=== PATIENT | female | born 1965 | race Caucasian/White ===

== ENCOUNTER 2016-05-01 18:27 | Inpatient (IN) | payer OTHER ==
[~2016-05-01] VITALS: Ht 157.5 cm; Wt 102.7 kg
[~2016-05-01 18:27] MED LIST: ALDACTONE 25MG25 M1 PO; ALEVE 220MG220 MG PO; ALPHA LIPOIC300 MG; AMBIEN 10MG10 MG PO; AMOXICILLIN 50500 MG PO; AMOXICILLIN 8751 TAB PO; ASPIRIN 32325 MG/TAB PO; ASPIRIN 81M81 MG/TA2 PO; ASPIRIN E.C. 8181 MG PO; ATACAND4 MG PO; B COMPLEX1 TA4 PO; BACTRIM DS 8001 TAB PO; CHANTIX 1MG1 MG PO; CINNAMON BARK P1 POW PO; COREG 3.123.125 MG/T PO; COREG 6.256.25 MG/TA PO; CYMBALTA 20MG20 MG PO; DESYREL 50MG50 MG PO; DIAMOX 250MG250 MG; DIFLUCAN150 MG PO; DIGITEK0.125 MG PO; FLEXERIL 1010 MG/TAB PO; FLOVENT 220MCG7.9 GM IH; GAS RELIEF80 MG PO; HUMALOG100 U/ML SQ; ISMO 20MG20 MG PO; KLONOPIN 0.5MG0.5 MG PO; LAMICTAL 25MG T25 MG PO; LANTUS100 U/ML SC; LANTUS100 U/ML SQ; LASIX 20MG TABL20 MG PO; LATUDA20 MG PO; LINZESS145CAP PO; LINZESS290CAP PO; LIPITOR 10MG10 MG PO; LODINE400 MG; LORTAB 5/500 501 TAB PO; METHADONE H10 MG/TAB; MINIPRESS 1M1 MG/CAP PO; MIRALAX PA17 GM/Dose PO; MONODOX100 PO; MS CONTIN 115 MG/TAB PO; MS CONTIN 330 MG/TAB PO; MUCINEX 60600 MG/TA1 PO; MUCUS RELIEF400 M1 PO; MULTIPLE VITAMI1 CAP PO; NEURONTIN100 MG/CAP PO; NEURONTIN300 MG/CAP; NEURONTIN600 MG/TAB PO; NEURONTIN800 MG/TAB PO; NICODERM C21 MG/PATC TOP; NITRO-TIME9 MG PO; NITROSTAT0.3 MG SL; NITROSTAT0.4 MG/TAB SL; NORCO 325 MG-51 TAB PO; NOVOLOG 100U100 U/M1 SC; NOVOLOG 100U100 U/M1 SQ; OXYCONTIN 10MG10 MG PO; PERCOCET 325 MG1 TA2 PO; PERCOCET 325 MG1 TA3 PO; PLAVIX 75MG TAB75 MG PO; POTASSIUM GLUC500 MG PO; PREDNISONE20 MG PO; PROAIR HFA0.09 MG/AC IH; PROTONIX 40MG T40 MG PO; PROTONIX20 MG PO; PROVENTIL0.09 MG/A1 IH; SPRINTEC 35 MCG1 TAB PO; TOPROL XL 25MG25 MG; VASOTEC 2.2.5 MG/TAB PO; VICODIN 5/300; VICODIN 5/300 PO; VITAMIN B COMPL1 TA1 PO; WELLBUTRIN 100100 MG PO; WELLBUTRIN SR150 M1 PO; WELLBUTRIN XL300 M1 PO; XARELTO10 MG; XARELTO20 MG PO; ZESTRIL 10MG10 MG PO; ZESTRIL 5MG5 MG PO; ZYRTEC 10MG10 MG PO; [UNRECOGNIZED DRUG - OTHER] PO
[2016-05-01 19:33] LABS: BASO # 0.1 (0.0-0.2); BASO % 0.5 % (0.0-2.0); EOS # 0.4 (0.0-0.7); EOS % 1.7 % (0-4.0); GRAN # 16.8 (1.4-6.5); GRAN % 78.4 % (42.2-75.2); HEMATOCRIT 39.9 % (37.0-47.0); HEMOGLOBIN 13.3 g/dl (12.5-16.0); LYMPH # 3.2 (1.2-3.4); MEAN CELL VOLUME 83 fl (80.0-100.0); MEAN CORPUSCULAR HEMOGLOBIN 28 pg (27.0-31.0); MEAN CORPUSCULAR HGB CONC 33 g/dl (33.0-37.0); MONO # 0.9 (0.1-0.6); MONO % 4.1 % (1.7-9.3); PLATELET COUNT 279 K/mm3 (130-400); RED BLOOD COUNT 4.82 M/mm3 (4.10-5.30); REDCELL DISTRIBUTION WIDTH-CV 13.6 % (11.5-14.5)
[2016-05-01 19:36] LABS: WHITE BLOOD COUNT 21.4 K/mm3 (4.8-10.8)
[2016-05-01 19:38] LABS: PARTIAL THROMBOPLASTIN TIME 29.6 SECONDS (26.0-37.0)
[2016-05-01 19:41] LABS: ADJUSTED CALCIUM 9.3 mg/dL (8.4-10.2); ALANINE AMINOTRANSFERASE 46 U/L (9-52); ALBUMIN 4.1 gm/dL (3.5-5.0); ALKALINE PHOSPHATASE 156 U/L (50-136); ANION GAP 13 mmol/L (7-16); BILIRUBIN,TOTAL 0.6 mg/dL (0.0-1.0); BLOOD UREA NITROGEN 20 mg/dL (7-17); CALCIUM 9.4 mg/dL (8.4-10.2); CARBON DIOXIDE 22 mmol/L (22-30); CHLORIDE 101 mmol/L (98-107); CREATININE, serum 1.55 mg/dL (0.52-1.25); GLUCOSE 95 mg/dL (74-106); POTASSIUM 4.7 mmol/L (3.4-5.0); SODIUM 135 mmol/L (137-145); TOTAL PROTEIN 7.1 gm/dL (6.4-8.2)
[2016-05-01 19:51] LABS: PROTHROMBIN TIME 11.6 SECONDS (9.7-12.8)
[2016-05-01 19:52] LABS: TROPONIN-I < 0.012 ng/mL (0.000-0.034)
[2016-05-01 21:20] LABS: PH 5 (5-8); URINE APPEARANCE Hazy; URINE BACTERIA Rare /hpf; URINE BILIRUBIN Negative (NEGATIVE); URINE BLOOD Negative (NEGATIVE); URINE COLOR Amber; URINE GLUCOSE Negative (NEGATIVE); URINE KETONE Negative (NEGATIVE); URINE UROBILINOGEN Negative (NEGATIVE); URINE WBC 0-2 /hpf
[2016-05-01 23:46] VITALS: BP 93/53; PULSE 118; TEMP 99.8
== END 2016-05-02 02:05 | disposition short-term general hospital (02) | DRG 871 ==
LOC: COL.ER 18:27 → MEDICAL 20:43 → ICU 20:43
PROVIDERS: Family Medicine
PROC: 02HV33Z Insertion of Infusion Device into Superior Vena Cava, Percutaneous Approach (ICD-10-PCS; principal; 2016-05-02)
DX: A41.9 Sepsis, unspecified organism (principal); J18.9 Pneumonia, unspecified organism; N17.9 Acute kidney failure, unspecified; I50.22 Chronic systolic (congestive) heart failure; E11.9 Type 2 diabetes mellitus without complications; I25.10 Atherosclerotic heart disease of native coronary artery without angina pectoris; Z95.5 Presence of coronary angioplasty implant and graft; Z87.891 Personal history of nicotine dependence; Z79.4 Long term (current) use of insulin; R65.20 Severe sepsis without septic shock
CPT/HCPCS: 99223-AI; C1751; J0456; J0696; J7030; J7060; Q9967

== ENCOUNTER 2016-06-03 14:23 | Observation (INO) | payer OTHER ==
[2016-06-03] VITALS (159 sets, daily range): BP systolic 85–97; BP diastolic 49–62; PULSE 100–106; TEMP 97–97.9; O2SAT 86–100
[~2016-06-03] VITALS: Ht 157.5 cm; Wt 99.3 kg
[2016-06-03 15:07] LABS: BASO # 0.1 (0.0-0.2); BASO % 0.7 % (0.0-2.0); EOS # 0.5 (0.0-0.7); GRAN # 6.1 (1.4-6.5); GRAN % 52.9 % (42.2-75.2); HEMATOCRIT 38.4 % (37.0-47.0); HEMOGLOBIN 12.7 g/dl (12.5-16.0); LYMPH # 4.2 (1.2-3.4); LYMPH % 36.3 % (20.0-51.0); MEAN CELL VOLUME 84 fl (80.0-100.0); MEAN CORPUSCULAR HEMOGLOBIN 28 pg (27.0-31.0); MEAN CORPUSCULAR HGB CONC 33 g/dl (33.0-37.0); MEAN PLATELET VOLUME 10.1 fl (7.4-10.4); MONO # 0.7 (0.1-0.6); MONO % 5.8 % (1.7-9.3); PLATELET COUNT 272 K/mm3 (130-400); RED BLOOD COUNT 4.58 M/mm3 (4.10-5.30); WHITE BLOOD COUNT 11.6 K/mm3 (4.8-10.8)
[2016-06-03 15:12] LABS: ADJUSTED CALCIUM 9.5 mg/dL (8.4-10.2); ALBUMIN 3.7 gm/dL (3.5-5.0); BILIRUBIN,TOTAL 0.6 mg/dL (0.0-1.0); CALCIUM 9.3 mg/dL (8.4-10.2); CREATININE, serum 1.26 mg/dL (0.52-1.25); POTASSIUM 3.7 mmol/L (3.4-5.0); TOTAL PROTEIN 6.5 gm/dL (6.4-8.2)
[2016-06-03 15:23] LABS: TROPONIN-I 0.015 ng/mL (0.000-0.034)
[2016-06-03 15:27] LABS: PROTHROMBIN TIME 10.9 SECONDS (9.7-12.8)
[2016-06-03 15:29] LABS: PARTIAL THROMBOPLASTIN TIME 30.1 SECONDS (26.0-37.0)
[2016-06-03] MEDS ORDERED: LIPITOR 80MG80 MG PO (15:55)
[2016-06-03] MEDS ORDERED: ALPHA LIPOIC A200 M2 PO (15:55)
[2016-06-03] MEDS ORDERED: ASPIRIN 32325 MG/TAB PO (15:55)
[2016-06-03] MEDS ORDERED: WELLBUTRIN SR200 MG PO (15:56)
[2016-06-03] MEDS ORDERED: PLAVIX 75MG TAB75 MG PO (15:56)
[2016-06-03] MEDS ORDERED: COREG 6.256.25 MG/TA PO (15:56)
[2016-06-03] MEDS ORDERED: CHANTIX 1MG1 MG PO (15:56)
[2016-06-03] MEDS ORDERED: VASOTEC 5MG5 MG/TAB PO (15:57)
[2016-06-03] MEDS ORDERED: CYMBALTA 60MG60 MG PO (15:57)
[2016-06-03] MEDS ORDERED: LANOXIN 0.120.125 MG PO (15:57)
[2016-06-03] MEDS ORDERED: NEURONTIN300 MG/CAP PO (15:58)
[2016-06-03] MEDS ORDERED: IMDUR 30MG30 MG/TAB PO (15:58)
[2016-06-03] MEDS ORDERED: LASIX 40MG TABL40 MG PO (15:58)
[2016-06-03] MEDS ORDERED: LAMICTAL200 MG PO (15:59)
[2016-06-03] MEDS ORDERED: LEVEMIR FLEX100 U/ML SQ (16:00)
[2016-06-03] MEDS ORDERED: MS CONTIN 330 MG/TAB PO (16:00)
[2016-06-03] MEDS ORDERED: ROXICODONE 55 MG/TAB PO (16:01)
[2016-06-03] MEDS ORDERED: NOVLOG SQ (16:01)
[2016-06-03] MEDS ORDERED: VICTOZA6 MG/ML SQ (16:02)
[2016-06-04] VITALS (393 sets, daily range): BP systolic 83–131; BP diastolic 54–94; PULSE 97–144; TEMP 97.9–98.5; O2SAT 81–100
[2016-06-04] MEDS ORDERED: ALPHA LIPOIC A200 M2 PO (09:33)
[2016-06-04] MEDS ORDERED: NITROSTAT0.4 MG/TAB SL (15:42)
== END 2016-06-04 16:30 | disposition home or self-care (01) ==
LOC: COL.ER 14:23 → IMCU 17:55
PROVIDERS: Emergency Medicine
DX: I21.4 Non-ST elevation (NSTEMI) myocardial infarction (principal); R07.9 Chest pain, unspecified; I50.22 Chronic systolic (congestive) heart failure; I25.10 Atherosclerotic heart disease of native coronary artery without angina pectoris; Z95.5 Presence of coronary angioplasty implant and graft; I42.9 Cardiomyopathy, unspecified; E11.9 Type 2 diabetes mellitus without complications; Z79.4 Long term (current) use of insulin; M79.7 Fibromyalgia; I48.0 Paroxysmal atrial fibrillation; Z79.01 Long term (current) use of anticoagulants; I44.7 Left bundle-branch block, unspecified
CPT/HCPCS: 99223-AI; 99239; A9502; G0378; J1160; J1250; J1650; J1815; J3010; J7030

== ENCOUNTER 2016-06-12 12:55 | Emergency (ER) | payer OTHER ==
[~2016-06-12] VITALS: Ht 157.5 cm; Wt 97.7 kg
[~2016-06-12 12:55] MED LIST changes: +ALPHA LIPOIC A200 M2 PO; +CYMBALTA 60MG60 MG PO; +IMDUR 30MG30 MG/TAB PO; +LAMICTAL200 MG PO; +LANOXIN 0.120.125 MG PO; +LASIX 40MG TABL40 MG PO; +LEVEMIR FLEX100 U/ML SQ; +LIPITOR 80MG80 MG PO; +NEURONTIN300 MG/CAP PO; +NOVLOG SQ; +ROXICODONE 55 MG/TAB PO; +VASOTEC 5MG5 MG/TAB PO; +VICTOZA6 MG/ML SQ; +WELLBUTRIN SR200 MG PO
[2016-06-12 13:04] VITALS: TEMP 99.5
[2016-06-12 13:24] LABS: BASO # 0.1 (0.0-0.2); BASO % 0.6 % (0.0-2.0); EOS # 0.1 (0.0-0.7); EOS % 1.1 % (0-4.0); GRAN # 8.7 (1.4-6.5); GRAN % 70.6 % (42.2-75.2); HEMATOCRIT 40.2 % (37.0-47.0); HEMOGLOBIN 13.5 g/dl (12.5-16.0); LYMPH % 24.2 % (20.0-51.0); MEAN CELL VOLUME 83 fl (80.0-100.0); MEAN CORPUSCULAR HEMOGLOBIN 28 pg (27.0-31.0); MEAN CORPUSCULAR HGB CONC 34 g/dl (33.0-37.0); MEAN PLATELET VOLUME 10.6 fl (7.4-10.4); MONO # 0.4 (0.1-0.6); MONO % 3.2 % (1.7-9.3); PLATELET COUNT 241 K/mm3 (130-400); RED BLOOD COUNT 4.85 M/mm3 (4.10-5.30); REDCELL DISTRIBUTION WIDTH-CV 13.9 % (11.5-14.5); WHITE BLOOD COUNT 12.3 K/mm3 (4.8-10.8)
[2016-06-12 13:30] LABS: PARTIAL THROMBOPLASTIN TIME 30.6 SECONDS (26.0-37.0)
[2016-06-12 13:44] LABS: ADJUSTED CALCIUM 9.4 mg/dL (8.4-10.2); ALBUMIN 4.1 gm/dL (3.5-5.0); BILIRUBIN,TOTAL 0.7 mg/dL (0.0-1.0); CALCIUM 9.5 mg/dL (8.4-10.2); CREATININE, serum 1.34 mg/dL (0.52-1.25); POTASSIUM 4.1 mmol/L (3.4-5.0); TOTAL PROTEIN 6.8 gm/dL (6.4-8.2)
[2016-06-12 13:55] LABS: TROPONIN-I 0.02 ng/mL (0.000-0.034)
[2016-06-12] MEDS ORDERED: MULTIPLE VITAMI1 CAP PO (15:08)
[2016-06-12 15:27] LABS: PH 5 (5-8); URINE APPEARANCE Clear; URINE BACTERIA Rare /hpf; URINE BILIRUBIN Negative (NEGATIVE); URINE BLOOD Negative (NEGATIVE); URINE COLOR Straw; URINE GLUCOSE 1+ (NEGATIVE); URINE KETONE Negative (NEGATIVE); URINE RBC None Seen /hpf; URINE UROBILINOGEN Negative (NEGATIVE); URINE WBC 0-2 /hpf
[2016-06-12 16:46] VITALS: BP 98/65; PULSE 104
== END 2016-06-12 16:20 | disposition short-term general hospital (02) ==
LOC: COL.ER 12:55
PROVIDERS: Family Medicine
DX: A41.9 Sepsis, unspecified organism (principal); R07.9 Chest pain, unspecified; I44.7 Left bundle-branch block, unspecified; Z95.5 Presence of coronary angioplasty implant and graft; I25.10 Atherosclerotic heart disease of native coronary artery without angina pectoris
CPT/HCPCS: J0692; J1650; J2185; J3370; J7030; J7050

== ENCOUNTER 2016-07-18 22:21 | Inpatient (IN) | payer OTHER ==
[~2016-07-18] VITALS: Ht 157.6 cm; Wt 99.3 kg
[2016-07-18] MEDS ORDERED: ALPHA LIPOIC A200 M2 PO (22:39)
[2016-07-18] MEDS ORDERED: ASPIRIN 81M81 MG/TA2 PO (22:43)
[2016-07-18] MEDS ORDERED: BRILINTA90 MG PO (22:44)
[2016-07-18 22:55] LABS: BASO # 0.1 (0.0-0.2); BASO % 0.6 % (0.0-2.0); EOS # 0.3 (0.0-0.7); EOS % 2.3 % (0-4.0); GRAN # 7.5 (1.4-6.5); GRAN % 65.1 % (42.2-75.2); HEMATOCRIT 38.5 % (37.0-47.0); HEMOGLOBIN 13.2 g/dl (12.5-16.0); LYMPH # 3.4 (1.2-3.4); LYMPH % 28.9 % (20.0-51.0); MEAN CELL VOLUME 84 fl (80.0-100.0); MEAN CORPUSCULAR HEMOGLOBIN 29 pg (27.0-31.0); MEAN CORPUSCULAR HGB CONC 34 g/dl (33.0-37.0); MONO # 0.3 (0.1-0.6); MONO % 2.8 % (1.7-9.3); PLATELET COUNT 288 K/mm3 (130-400); RED BLOOD COUNT 4.61 M/mm3 (4.10-5.30); REDCELL DISTRIBUTION WIDTH-CV 13.8 % (11.5-14.5); WHITE BLOOD COUNT 11.6 K/mm3 (4.8-10.8)
[2016-07-18 23:00] LABS: PROTHROMBIN TIME 10.8 SECONDS (9.7-12.8)
[2016-07-18 23:05] LABS: ADJUSTED CALCIUM 9.2 mg/dL (8.4-10.2); ALANINE AMINOTRANSFERASE 44 U/L (9-52); ALBUMIN 4.3 gm/dL (3.5-5.0); ALKALINE PHOSPHATASE 140 U/L (50-136); ANION GAP 14 mmol/L (7-16); BILIRUBIN,TOTAL 0.6 mg/dL (0.0-1.0); BLOOD UREA NITROGEN 23 mg/dL (7-17); CALCIUM 9.4 mg/dL (8.4-10.2); CARBON DIOXIDE 25 mmol/L (22-30); CHLORIDE 98 mmol/L (98-107); CREATINE KINASE 52 U/L (30-135); CREATININE, serum 1.26 mg/dL (0.52-1.25); GLUCOSE 135 mg/dL (74-106); LIPASE 41 U/L (23-300); POTASSIUM 3.5 mmol/L (3.4-5.0); SODIUM 137 mmol/L (137-145); TOTAL PROTEIN 7.4 gm/dL (6.4-8.2)
[2016-07-18 23:16] LABS: B-TYPE NATRIURETIC PEPTIDE 373 pg/mL (0-125)
[2016-07-18 23:29] LABS: TROPONIN-I < 0.012 ng/mL (0.000-0.034)
[2016-07-19] VITALS (826 sets, daily range): BP systolic 91–123; BP diastolic 68–93; PULSE 97–116; TEMP 97.2–98.5; O2SAT 87–100
[2016-07-19 06:12] LABS: DIGOXIN < 0.4 ng/mL (0.8-2.0)
[2016-07-19 07:01] LABS: PH 6 (5-8); SQUAMOUS EPITHELIAL 0-2 /hpf; URINE APPEARANCE Clear; URINE BACTERIA None Seen /hpf; URINE BILIRUBIN Negative (NEGATIVE); URINE BLOOD 1+ (NEGATIVE); URINE COLOR Straw; URINE GLUCOSE Negative (NEGATIVE); URINE KETONE Negative (NEGATIVE); URINE RBC 0-2 /hpf; URINE UROBILINOGEN Negative (NEGATIVE); URINE WBC 0-2 /hpf
[2016-07-20] VITALS (296 sets, daily range): BP systolic 94–128; BP diastolic 55–77; PULSE 92–117; TEMP 97.3–98.5; O2SAT 91–100
[2016-07-21] VITALS (7 sets, daily range): BP systolic 98–119; BP diastolic 57–79; PULSE 87–105; TEMP 97.8–98.7
[2016-07-22] VITALS (16 sets, daily range): BP systolic 98–98102; BP diastolic 6–93; PULSE 75–112; TEMP 97.8–99.1
[2016-07-22] MEDS ORDERED: KLONOPIN 0.5MG0.5 MG (08:24)
[2016-07-22 09:40] LABS: MEAN CELL VOLUME 86 fl (80.0-100.0); MEAN CORPUSCULAR HEMOGLOBIN 28 pg (27.0-31.0); MEAN CORPUSCULAR HGB CONC 33 g/dl (33.0-37.0); MEAN PLATELET VOLUME 9.9 fl (7.4-10.4); PLATELET COUNT 268 K/mm3 (130-400); RED BLOOD COUNT 4.28 M/mm3 (4.10-5.30); REDCELL DISTRIBUTION WIDTH-CV 13.6 % (11.5-14.5); WHITE BLOOD COUNT 7.2 K/mm3 (4.8-10.8)
[2016-07-22 09:45] LABS: HEMATOCRIT 36.6 % (37.0-47.0)
[2016-07-22 09:50] LABS: CALCIUM 9.1 mg/dL (8.4-10.2); CREATININE, serum 1.17 mg/dL (0.52-1.25); POTASSIUM 3.6 mmol/L (3.4-5.0)
[2016-07-22 09:51] LABS: PROTHROMBIN TIME 10.5 SECONDS (9.7-12.8)
[2016-07-23] VITALS (7 sets, daily range): BP systolic 95–129; BP diastolic 50–85; PULSE 99–107; TEMP 97.4–98.6
[2016-07-23] MEDS ORDERED: COREG 6.256.25 MG/TA PO (11:07)
[2016-07-23] MEDS ORDERED: NITRO-DUR0.4 MG/PAT TD (13:38)
[2016-07-24] MEDS ORDERED: ZOFRAN 4MG T4 MG/TAB PO (17:04)
[2016-07-24] MEDS ORDERED: LEVAQUIN 750MG750 M1 PO (17:04)
[2016-07-24] MEDS ORDERED: TESSALON P100 MG/CAP PO (17:04)
== END 2016-07-23 17:59 | disposition home or self-care (01) | DRG 287 ==
LOC: COL.ER 22:21 → IMCU 07-19 00:57 → MEDICAL 07-20 16:13
PROVIDERS: Emergency Medicine; Internal Medicine; Internal Medicine Cardiovascular Disease
PROC: B2111ZZ Fluoroscopy of Multiple Coronary Arteries using Low Osmolar Contrast (ICD-10-PCS; principal; 2016-07-22)
DX: R07.89 Other chest pain (principal); N17.9 Acute kidney failure, unspecified; E11.9 Type 2 diabetes mellitus without complications; M54.5 Low back pain; I25.5 Ischemic cardiomyopathy; I25.2 Old myocardial infarction; I25.10 Atherosclerotic heart disease of native coronary artery without angina pectoris; F17.210 Nicotine dependence, cigarettes, uncomplicated; Z95.5 Presence of coronary angioplasty implant and graft; Z79.4 Long term (current) use of insulin
CPT/HCPCS: 99223-AI; 99232-AI; 99239; A9502; J1644; J1815; J2250; J2270; J2785; J3010; J7030; J7040; Q9967

== ENCOUNTER 2016-07-24 15:00 | Emergency (ER) | payer OTHER ==
[~2016-07-24] VITALS: Ht 157.5 cm; Wt 100.9 kg
[~2016-07-24 15:00] MED LIST changes: +BRILINTA90 MG PO; +KLONOPIN 0.5MG0.5 MG; +NITRO-DUR0.4 MG/PAT TD
[2016-07-24 15:02] VITALS: TEMP 99.9
[2016-07-24 16:28] LABS: INFLUENZA B NEGATIVE
[2016-07-24] MEDS ORDERED: LEVAQUIN 750MG750 M1 PO (17:04)
[2016-07-24] MEDS ORDERED: TESSALON P100 MG/CAP PO (17:04)
[2016-07-24] MEDS ORDERED: ZOFRAN 4MG T4 MG/TAB PO (17:04)
[2016-07-24 17:15] VITALS: BP 100/61; PULSE 100
== END 2016-07-24 17:16 | disposition home or self-care (01) ==
LOC: COL.ER 15:00
PROVIDERS: Emergency Medicine
DX: J18.9 Pneumonia, unspecified organism (principal); I25.10 Atherosclerotic heart disease of native coronary artery without angina pectoris; E11.9 Type 2 diabetes mellitus without complications; J45.909 Unspecified asthma, uncomplicated; F17.210 Nicotine dependence, cigarettes, uncomplicated

== ENCOUNTER 2016-08-27 19:24 | Emergency (ER) | payer OTHER ==
[~2016-08-27] VITALS: Ht 157.5 cm; Wt 97.7 kg
[~2016-08-27 19:24] MED LIST changes: +LEVAQUIN 750MG750 M1 PO; +TESSALON P100 MG/CAP PO; +ZOFRAN 4MG T4 MG/TAB PO
[2016-08-27 19:25] VITALS: BP 104/56; PULSE 112; TEMP 98.6
[2016-08-27] MEDS ORDERED: CRUTCHES MC (21:19)
== END 2016-08-27 22:09 | disposition home or self-care (01) ==
LOC: COL.ER 19:24
DX: S82.301A Unspecified fracture of lower end of right tibia, initial encounter for closed fracture (principal); S82.831A Other fracture of upper and lower end of right fibula, initial encounter for closed fracture; S00.03XA Contusion of scalp, initial encounter; W01.198A Fall on same level from slipping, tripping and stumbling with subsequent striking against other object, initial encounter; Y92.009 Unspecified place in unspecified non-institutional (private) residence as the place of occurrence of the external cause; E11.9 Type 2 diabetes mellitus without complications; I25.2 Old myocardial infarction; F17.210 Nicotine dependence, cigarettes, uncomplicated; Z79.4 Long term (current) use of insulin
CPT/HCPCS: J1170

== ENCOUNTER → 2016-09-13 | Outpatient (CLI) | payer OTHER ==
[~2016-09-13] MED LIST changes: +CRUTCHES MC; +IMDUR 60MG60 MG/TAB PO
== END ==
LOC: SUN.DIA 13:54
DX: E11.65 Type 2 diabetes mellitus with hyperglycemia (principal); E11.40 Type 2 diabetes mellitus with diabetic neuropathy, unspecified; E66.9 Obesity, unspecified; Z68.41 Body mass index [BMI] 40.0-44.9, adult; Z71.3 Dietary counseling and surveillance; E78.5 Hyperlipidemia, unspecified; I10 Essential (primary) hypertension; I51.9 Heart disease, unspecified; F17.210 Nicotine dependence, cigarettes, uncomplicated; I50.9 Heart failure, unspecified; Z95.5 Presence of coronary angioplasty implant and graft; I25.10 Atherosclerotic heart disease of native coronary artery without angina pectoris; M79.7 Fibromyalgia
CPT/HCPCS: G0108

== ENCOUNTER 2016-11-13 20:10 | Inpatient (IN) | payer OTHER ==
[~2016-11-13] VITALS: Ht 157.5 cm; Wt 100.7 kg
[2016-11-13] VITALS (92 sets, daily range): BP systolic 82; BP diastolic 54; PULSE 90; TEMP 97.8; O2SAT 97–100
[~2016-11-13 20:10] MED LIST changes: -IMDUR 60MG60 MG/TAB PO
[2016-11-13] MEDS ORDERED: VASOTEC 5MG5 MG/TAB PO ×2 (20:33→23:04)
[2016-11-13] MEDS ORDERED: IMDUR 60MG60 MG/TAB PO (20:35)
[2016-11-13] MEDS ORDERED: LASIX 40MG TABL40 MG PO (20:35)
[2016-11-13 20:38] LABS: BASO # 0.1 (0.0-0.2); BASO % 0.6 % (0.0-2.0); EOS # 0.4 (0.0-0.7); EOS % 3.9 % (0-4.0); GRAN # 6.2 (1.4-6.5); GRAN % 60.7 % (42.2-75.2); HEMATOCRIT 40.7 % (37.0-47.0); HEMOGLOBIN 13.7 g/dl (12.5-16.0); LYMPH # 2.9 (1.2-3.4); MEAN CELL VOLUME 85 fl (80.0-100.0); MEAN CORPUSCULAR HEMOGLOBIN 29 pg (27.0-31.0); MEAN CORPUSCULAR HGB CONC 34 g/dl (33.0-37.0); MEAN PLATELET VOLUME 10.9 fl (7.4-10.4); MONO # 0.6 (0.1-0.6); MONO % 5.5 % (1.7-9.3); PLATELET COUNT 225 K/mm3 (130-400); RED BLOOD COUNT 4.79 M/mm3 (4.10-5.30); REDCELL DISTRIBUTION WIDTH-CV 12.7 % (11.5-14.5); WHITE BLOOD COUNT 10.2 K/mm3 (4.8-10.8)
[2016-11-13 20:45] LABS: INR 0.9 (0.8-3.0); PROTHROMBIN TIME 10.2 SECONDS (9.7-12.8)
[2016-11-13 20:48] LABS: PARTIAL THROMBOPLASTIN TIME 30.6 SECONDS (26.0-37.0)
[2016-11-13 21:04] LABS: ADJUSTED CALCIUM 9.5 mg/dL (8.4-10.2); ALBUMIN 4.3 gm/dL (3.5-5.0); BILIRUBIN,TOTAL 0.5 mg/dL (0.0-1.0); CALCIUM 9.7 mg/dL (8.4-10.2); CREATININE, serum 1.26 mg/dL (0.52-1.25); POTASSIUM 4.5 mmol/L (3.4-5.0); TOTAL PROTEIN 7.4 gm/dL (6.4-8.2)
[2016-11-13 21:20] LABS: TROPONIN-I 1.7 ng/mL (0.000-0.034)
[2016-11-13] MEDS ORDERED: CYMBALTA 60MG60 MG PO (23:09)
[2016-11-14] VITALS (1156 sets, daily range): BP systolic 96–127; BP diastolic 56–82; PULSE 85–105; TEMP 97.5–98.3; O2SAT 70–100
[2016-11-14 03:17] LABS: PH 5 (5-8); SQUAMOUS EPITHELIAL 0-2 /hpf; URINE APPEARANCE Clear; URINE BACTERIA None Seen /hpf; URINE BILIRUBIN Negative (NEGATIVE); URINE BLOOD Negative (NEGATIVE); URINE COLOR Yellow; URINE GLUCOSE Negative (NEGATIVE); URINE KETONE Negative (NEGATIVE); URINE RBC 0-2 /hpf; URINE UROBILINOGEN Negative (NEGATIVE); URINE WBC 0-2 /hpf
[2016-11-14 05:47] LABS: BASO % 0.4 % (0.0-2.0); EOS # 0.3 (0.0-0.7); GRAN # 2.8 (1.4-6.5); GRAN % 39.8 % (42.2-75.2); LYMPH # 3.4 (1.2-3.4); LYMPH % 48.9 % (20.0-51.0); MEAN CELL VOLUME 85 fl (80.0-100.0); MEAN CORPUSCULAR HGB CONC 34 g/dl (33.0-37.0); MEAN PLATELET VOLUME 10.7 fl (7.4-10.4); MONO # 0.5 (0.1-0.6); MONO % 6.6 % (1.7-9.3); PLATELET COUNT 155 K/mm3 (130-400); RED BLOOD COUNT 3.75 M/mm3 (4.10-5.30); WHITE BLOOD COUNT 6.9 K/mm3 (4.8-10.8)
[2016-11-14 05:48] LABS: HEMATOCRIT 31.9 % (37.0-47.0); HEMOGLOBIN 10.8 g/dl (12.5-16.0); MEAN CORPUSCULAR HEMOGLOBIN 29 pg (27.0-31.0)
[2016-11-14 05:58] LABS: CALCIUM 8.5 mg/dL (8.4-10.2); CREATININE, serum 1.32 mg/dL (0.52-1.25); POTASSIUM 3.6 mmol/L (3.4-5.0)
[2016-11-14 06:10] LABS: TROPONIN-I 2.94 ng/mL (0.000-0.034)
[2016-11-15] VITALS (624 sets, daily range): BP systolic 103–122; BP diastolic 56–75; PULSE 77–110; TEMP 97.6–98; O2SAT 74–100
[2016-11-15 06:16] LABS: BASO % 0.5 % (0.0-2.0); EOS # 0.4 (0.0-0.7); EOS % 5.9 % (0-4.0); GRAN # 2.8 (1.4-6.5); GRAN % 44.5 % (42.2-75.2); LYMPH # 2.7 (1.2-3.4); LYMPH % 41.9 % (20.0-51.0); MEAN CELL VOLUME 85 fl (80.0-100.0); MEAN CORPUSCULAR HGB CONC 34 g/dl (33.0-37.0); MEAN PLATELET VOLUME 11.2 fl (7.4-10.4); MONO # 0.4 (0.1-0.6); PLATELET COUNT 167 K/mm3 (130-400); RED BLOOD COUNT 4.11 M/mm3 (4.10-5.30); REDCELL DISTRIBUTION WIDTH-CV 12.5 % (11.5-14.5); WHITE BLOOD COUNT 6.3 K/mm3 (4.8-10.8)
[2016-11-15 06:17] LABS: HEMATOCRIT 34.8 % (37.0-47.0); HEMOGLOBIN 11.7 g/dl (12.5-16.0); MEAN CORPUSCULAR HEMOGLOBIN 28 pg (27.0-31.0)
[2016-11-15 06:23] LABS: CREATININE, serum 1.04 mg/dL (0.52-1.25); POTASSIUM 4.1 mmol/L (3.4-5.0)
== END 2016-11-15 16:00 | disposition home or self-care (01) | DRG 281 ==
LOC: COL.ER 20:10 → ICU 21:49 → COL.ER 21:49 → ICU 21:49
PROVIDERS: Emergency Medicine; Family Medicine
DX: I21.4 Non-ST elevation (NSTEMI) myocardial infarction (principal); E87.1 Hypo-osmolality and hyponatremia; I50.22 Chronic systolic (congestive) heart failure; E11.40 Type 2 diabetes mellitus with diabetic neuropathy, unspecified; E86.0 Dehydration; M54.2 Cervicalgia; I95.9 Hypotension, unspecified; I25.2 Old myocardial infarction; F17.210 Nicotine dependence, cigarettes, uncomplicated; Z79.4 Long term (current) use of insulin; Z95.5 Presence of coronary angioplasty implant and graft
CPT/HCPCS: 99233-AI; 99239; A9502; J1650; J1815; J1885; J2270; J2785; J7030; J7040; P9047; Q9967

== ENCOUNTER → 2017-02-15 | Outpatient (CLI) | payer SELFPAY ==
[~2017-02-15] MED LIST changes: +IMDUR 60MG60 MG/TAB PO
== END ==
LOC: SUN.DIA 14:25
DX: E11.40 Type 2 diabetes mellitus with diabetic neuropathy, unspecified (principal); Z79.4 Long term (current) use of insulin; E78.5 Hyperlipidemia, unspecified; I11.9 Hypertensive heart disease without heart failure; E66.9 Obesity, unspecified; Z68.41 Body mass index [BMI] 40.0-44.9, adult; Z71.3 Dietary counseling and surveillance; F17.210 Nicotine dependence, cigarettes, uncomplicated
CPT/HCPCS: G0108

== ENCOUNTER → 2017-04-04 | Outpatient (CLI) | payer SELFPAY | LOC: SUN.DIA 09:13 | DX: E11.40 Type 2 diabetes mellitus with diabetic neuropathy, unspecified (principal); Z79.4 Long term (current) use of insulin; E78.5 Hyperlipidemia, unspecified; I11.9 Hypertensive heart disease without heart failure; E66.9 Obesity, unspecified; Z68.41 Body mass index [BMI] 40.0-44.9, adult; Z71.3 Dietary counseling and surveillance; F17.210 Nicotine dependence, cigarettes, uncomplicated | CPT/HCPCS: G0108 ==

== ENCOUNTER → 2017-04-28 | Outpatient (CLI) | payer SELFPAY ==
[2017-04-28 16:55] LABS: HEMATOCRIT 42.5 % (37.0-47.0); HEMOGLOBIN 14.4 g/dl (12.5-16.0); MEAN CELL VOLUME 87 fl (80.0-100.0); MEAN CORPUSCULAR HEMOGLOBIN 29 pg (27.0-31.0); MEAN CORPUSCULAR HGB CONC 34 g/dl (33.0-37.0); MEAN PLATELET VOLUME 10.6 fl (7.4-10.4); PLATELET COUNT 230 K/mm3 (130-400)
[2017-04-28 17:06] LABS: ALBUMIN 4.7 gm/dL (3.5-5.0); BILIRUBIN,TOTAL 0.6 mg/dL (0.0-1.0); CALCIUM 9.7 mg/dL (8.4-10.2); CREATININE, serum 1.38 mg/dL (0.52-1.25); POTASSIUM 4.5 mmol/L (3.4-5.0); TOTAL PROTEIN 7.5 gm/dL (6.4-8.2)
[2017-04-28 17:36] LABS: THYROID STIMULATING HORMONE 0.175 uIU/mL (0.465-4.680)
== END ==
LOC: COL.LAB 15:42
DX: I50.9 Heart failure, unspecified (principal); E11.9 Type 2 diabetes mellitus without complications

== ENCOUNTER → 2017-06-23 | Outpatient (CLI) | payer OTHER | LOC: COL.PUL 06-21 15:00 | DX: J39.8 Other specified diseases of upper respiratory tract (principal) ==

== ENCOUNTER → 2017-06-30 | Outpatient (CLI) | payer OTHER | LOC: SUN.DIA 03-21 09:19 | DX: E11.40 Type 2 diabetes mellitus with diabetic neuropathy, unspecified (principal); Z79.4 Long term (current) use of insulin; E78.5 Hyperlipidemia, unspecified; I11.9 Hypertensive heart disease without heart failure; E66.9 Obesity, unspecified; Z68.41 Body mass index [BMI] 40.0-44.9, adult; Z71.3 Dietary counseling and surveillance; F17.210 Nicotine dependence, cigarettes, uncomplicated | CPT/HCPCS: G0108 ==

== ENCOUNTER → 2017-08-16 | Outpatient (CLI) | payer OTHER | LOC: MHCPAIN 14:39 | DX: G89.29 Other chronic pain (principal); M79.2 Neuralgia and neuritis, unspecified; M79.1 Myalgia | CPT/HCPCS: G0463 ==

== ENCOUNTER → 2017-09-13 | Outpatient (CLI) | payer OTHER | LOC: MHCPAIN 15:09 | DX: G89.29 Other chronic pain (principal); M79.2 Neuralgia and neuritis, unspecified; M79.1 Myalgia | CPT/HCPCS: G0463 ==

== ENCOUNTER → 2017-10-04 | Outpatient (CLI) | payer SELFPAY | LOC: SUN.DIA 13:45 | DX: E11.40 Type 2 diabetes mellitus with diabetic neuropathy, unspecified (principal); Z79.4 Long term (current) use of insulin; I51.9 Heart disease, unspecified; E66.9 Obesity, unspecified; Z68.41 Body mass index [BMI] 40.0-44.9, adult; Z71.3 Dietary counseling and surveillance; F17.210 Nicotine dependence, cigarettes, uncomplicated | CPT/HCPCS: G0108 ==

== ENCOUNTER → 2017-10-11 | Outpatient (CLI) | payer OTHER | LOC: MHCPAIN 14:36 | DX: G89.29 Other chronic pain (principal); M79.2 Neuralgia and neuritis, unspecified; M79.1 Myalgia | CPT/HCPCS: G0463 ==

== ENCOUNTER 2017-11-02 15:00 | Outpatient (RCR) | payer SELFPAY ==
[2017-11-23] MEDS ORDERED: FLEXERIL 1010 MG/TAB PO (13:11)
[2017-11-29] MEDS ORDERED: TRESIBA FL200 UNIT/1 SQ (08:39)
[2017-11-29] MEDS ORDERED: VICTOZA6 MG/ML SQ (08:40)
== END 2017-12-05 | disposition home or self-care (01) ==
LOC: WSPT
DX: M79.7 Fibromyalgia (principal); G89.4 Chronic pain syndrome

== ENCOUNTER 2017-11-22 10:32 | Observation (INO) | payer SELFPAY ==
[2017-11-22] VITALS (8 sets, daily range): BP systolic 154–160; BP diastolic 76–96; PULSE 91–121; TEMP 97.3–98.8
[~2017-11-22] VITALS: Ht 157.5 cm; Wt 112.3 kg
[2017-11-22 10:50] LABS: BASO # 0.1 (0.0-0.2); BASO % 0.7 % (0.0-2.0); EOS # 0.4 (0.0-0.7); EOS % 2.5 % (0-4.0); GRAN # 9.6 (1.4-6.5); GRAN % 64.5 % (42.2-75.2); HEMOGLOBIN 14.4 g/dl (12.5-16.0); LYMPH # 3.9 (1.2-3.4); LYMPH % 25.9 % (20.0-51.0); MEAN CELL VOLUME 84 fl (80.0-100.0); MEAN CORPUSCULAR HEMOGLOBIN 29 pg (27.0-31.0); MEAN CORPUSCULAR HGB CONC 34 g/dl (33.0-37.0); MEAN PLATELET VOLUME 10.3 fl (7.4-10.4); MONO # 0.9 (0.1-0.6); MONO % 6.1 % (1.7-9.3); PLATELET COUNT 287 K/mm3 (130-400); RED BLOOD COUNT 4.99 M/mm3 (4.10-5.30); REDCELL DISTRIBUTION WIDTH-CV 13.3 % (11.5-14.5)
[2017-11-22 10:52] LABS: INR 0.9 (0.8-3.0); PROTHROMBIN TIME 10.2 SECONDS (9.7-12.8)
[2017-11-22 10:55] LABS: PARTIAL THROMBOPLASTIN TIME 33.3 SECONDS (26.0-37.0)
[2017-11-22 11:04] LABS: ALBUMIN 4.3 gm/dL (3.5-5.0); BILIRUBIN,TOTAL 0.4 mg/dL (0.0-1.0); CALCIUM 8.7 mg/dL (8.4-10.2); CREATININE, serum 1.44 mg/dL (0.52-1.25); POTASSIUM 3.7 mmol/L (3.4-5.0); TOTAL PROTEIN 7.4 gm/dL (6.4-8.2)
[2017-11-22 11:15] LABS: TROPONIN-I 0.015 ng/mL (0.000-0.034)
[2017-11-23 04:44] VITALS: BP 129/61; PULSE 123; TEMP 98.9
[2017-11-23 06:37] LABS: BASO # 0.1 (0.0-0.2); BASO % 0.4 % (0.0-2.0); EOS % 0.1 % (0-4.0); GRAN # 15.2 (1.4-6.5); GRAN % 80.8 % (42.2-75.2); HEMATOCRIT 40.4 % (37.0-47.0); LYMPH # 1.9 (1.2-3.4); LYMPH % 10.3 % (20.0-51.0); MEAN CELL VOLUME 85 fl (80.0-100.0); MEAN CORPUSCULAR HEMOGLOBIN 29 pg (27.0-31.0); MEAN CORPUSCULAR HGB CONC 35 g/dl (33.0-37.0); MEAN PLATELET VOLUME 10.6 fl (7.4-10.4); MONO # 1.5 (0.1-0.6); MONO % 7.9 % (1.7-9.3); PLATELET COUNT 247 K/mm3 (130-400); RED BLOOD COUNT 4.76 M/mm3 (4.10-5.30); REDCELL DISTRIBUTION WIDTH-CV 13.2 % (11.5-14.5)
[2017-11-23 06:59] LABS: CALCIUM 7.9 mg/dL (8.4-10.2); CREATININE, serum 1.03 mg/dL (0.52-1.25); POTASSIUM 4.2 mmol/L (3.4-5.0)
[2017-11-23 07:25] VITALS: BP 113/74; PULSE 86; TEMP 99.1
[2017-11-23 09:39] LABS: COLLECTION METHOD CLEAN CATCH
[2017-11-23 09:47] LABS: MUCOUS Present /lpf; PH 5 (5-8); SQUAMOUS EPITHELIAL 0-2 /hpf; URINE APPEARANCE Clear; URINE BACTERIA None Seen /hpf; URINE BILIRUBIN Negative (NEGATIVE); URINE BLOOD Negative (NEGATIVE); URINE COLOR Yellow; URINE GLUCOSE 3+ (NEGATIVE); URINE KETONE Negative (NEGATIVE); URINE LEUKOCYTE ESTERASE Negative (NEGATIVE); URINE NITRATE Negative (NEGATIVE); URINE PROTEIN(semi-quant) 1+ (NEGATIVE); URINE RBC 0-2 /hpf
[2017-11-23 11:17] VITALS: BP 101/83; PULSE 101; TEMP 98.3
[2017-11-23] MEDS ORDERED: FLEXERIL 1010 MG/TAB PO (13:11)
[2017-11-23 15:36] VITALS: BP 95/47; PULSE 93; TEMP 98.2
== END 2017-11-23 18:15 | disposition home or self-care (01) ==
LOC: COL.ER 10:32 → MEDICAL 13:17 → ICU 13:17 → MEDICAL 15:23
PROVIDERS: Emergency Medicine; Physician Assistant
DX: R07.9 Chest pain, unspecified (principal); G89.29 Other chronic pain; M54.9 Dorsalgia, unspecified; M54.2 Cervicalgia; I25.10 Atherosclerotic heart disease of native coronary artery without angina pectoris; I25.2 Old myocardial infarction; I13.0 Hypertensive heart and chronic kidney disease with heart failure and stage 1 through stage 4 chronic kidney disease, or unspecified chronic kidney disease; E11.22 Type 2 diabetes mellitus with diabetic chronic kidney disease; N18.3 Chronic kidney disease, stage 3 (moderate); I50.9 Heart failure, unspecified; I25.5 Ischemic cardiomyopathy; G47.33 Obstructive sleep apnea (adult) (pediatric); D72.829 Elevated white blood cell count, unspecified; D64.9 Anemia, unspecified; F41.9 Anxiety disorder, unspecified; F32.9 Major depressive disorder, single episode, unspecified; E66.01 Morbid (severe) obesity due to excess calories; I34.0 Nonrheumatic mitral (valve) insufficiency; E11.42 Type 2 diabetes mellitus with diabetic polyneuropathy; Z88.8 Allergy status to other drugs, medicaments and biological substances; Z95.5 Presence of coronary angioplasty implant and graft; Z79.4 Long term (current) use of insulin; Z87.891 Personal history of nicotine dependence; Z82.49 Family history of ischemic heart disease and other diseases of the circulatory system
CPT/HCPCS: C1760; C1894; G0378; J1644; J1815; J2270; J2405; J2704; J7030; Q9967

== ENCOUNTER 2017-11-29 06:12 | Emergency (ER) | payer SELFPAY ==
[~2017-11-29] VITALS: Ht 157.5 cm; Wt 106.8 kg
[2017-11-29 06:20] VITALS: TEMP 98.9
[2017-11-29 06:43] LABS: BASO # 0.1 (0.0-0.2); BASO % 0.4 % (0.0-2.0); EOS # 0.2 (0.0-0.7); EOS % 1.4 % (0-4.0); GRAN # 12.1 (1.4-6.5); GRAN % 81.9 % (42.2-75.2); HEMOGLOBIN 12.2 g/dl (12.5-16.0); LYMPH # 1.5 (1.2-3.4); LYMPH % 10.3 % (20.0-51.0); MEAN CELL VOLUME 86 fl (80.0-100.0); MEAN CORPUSCULAR HEMOGLOBIN 29 pg (27.0-31.0); MEAN CORPUSCULAR HGB CONC 34 g/dl (33.0-37.0); MEAN PLATELET VOLUME 9.7 fl (7.4-10.4); MONO # 0.8 (0.1-0.6); MONO % 5.2 % (1.7-9.3); PLATELET COUNT 341 K/mm3 (130-400); RED BLOOD COUNT 4.24 M/mm3 (4.10-5.30); REDCELL DISTRIBUTION WIDTH-CV 13.8 % (11.5-14.5)
[2017-11-29 06:44] LABS: HEMATOCRIT 36.3 % (37.0-47.0)
[2017-11-29 07:04] LABS: ALBUMIN 3.5 gm/dL (3.5-5.0); BILIRUBIN,TOTAL 1.5 mg/dL (0.0-1.0); CALCIUM 8.8 mg/dL (8.4-10.2); CREATININE, serum 1.42 mg/dL (0.52-1.25); POTASSIUM 3.2 mmol/L (3.4-5.0); TOTAL PROTEIN 7.2 gm/dL (6.4-8.2)
[2017-11-29 07:16] LABS: TROPONIN-I 0.028 ng/mL (0.000-0.034)
[2017-11-29 07:28] LABS: C-REACTIVE PROTEIN 32.2 mg/dL (0.0-0.9)
[2017-11-29] MEDS ORDERED: TRESIBA FL200 UNIT/1 SQ (08:39)
[2017-11-29] MEDS ORDERED: VICTOZA6 MG/ML SQ (08:40)
[2017-11-29 12:57] VITALS: BP 104/80; PULSE 112
== END 2017-11-29 13:44 | disposition short-term general hospital (02) ==
LOC: COL.ER 06:12
PROVIDERS: Emergency Medicine
DX: E11.9 Type 2 diabetes mellitus without complications (principal); K81.9 Cholecystitis, unspecified; Z95.5 Presence of coronary angioplasty implant and graft; Z79.4 Long term (current) use of insulin; Z79.82 Long term (current) use of aspirin
CPT/HCPCS: J1170; J2543; J2765; J3480; J7030

== ENCOUNTER → 2018-01-10 | Outpatient (CLI) | payer OTHER ==
[~2018-01-10] MED LIST changes: +TRESIBA FL200 UNIT/1 SQ
== END ==
LOC: MHCPAIN 15:50
DX: M79.2 Neuralgia and neuritis, unspecified (principal); M79.1 Myalgia
CPT/HCPCS: G0463

== ENCOUNTER → 2018-01-26 | Outpatient (CLI) | payer OTHER | LOC: SUN.DIA 01-10 11:32 | DX: E11.40 Type 2 diabetes mellitus with diabetic neuropathy, unspecified (principal); E78.5 Hyperlipidemia, unspecified; E66.9 Obesity, unspecified; F17.210 Nicotine dependence, cigarettes, uncomplicated | CPT/HCPCS: G0108 ==

== ENCOUNTER → 2018-03-09 | Outpatient (CLI) | payer OTHER ==
[2018-03-09 17:44] LABS: HEMATOCRIT 42.2 % (37.0-47.0); HEMOGLOBIN 14.4 g/dl (12.5-16.0); MEAN CELL VOLUME 82 fl (80.0-100.0); MEAN CORPUSCULAR HEMOGLOBIN 28 pg (27.0-31.0); MEAN CORPUSCULAR HGB CONC 34 g/dl (33.0-37.0); PLATELET COUNT 255 K/mm3 (130-400); RED BLOOD COUNT 5.15 M/mm3 (4.10-5.30); REDCELL DISTRIBUTION WIDTH-CV 13.5 % (11.5-14.5)
[2018-03-09 17:53] LABS: ALBUMIN 4.2 gm/dL (3.5-5.0); BILIRUBIN,TOTAL 0.6 mg/dL (0.0-1.0); CALCIUM 9.3 mg/dL (8.4-10.2); CHOLESTEROL RISK RATIO 5.5; CREATININE, serum 1.42 mg/dL (0.52-1.25); POTASSIUM 4.2 mmol/L (3.4-5.0); TOTAL PROTEIN 7.3 gm/dL (6.4-8.2)
[2018-03-09 18:02] LABS: ERYTHROCYTE SEDIMENTATION RATE 14 mm/hr (0-20)
[2018-03-09 18:23] LABS: THYROID STIMULATING HORMONE 0.902 uIU/mL (0.465-4.680)
== END ==
LOC: COL.LAB 16:59
PROVIDERS: Family Medicine
DX: Z01.89 Encounter for other specified special examinations (principal)

== ENCOUNTER → 2018-05-16 | Outpatient (CLI) | payer SELFPAY | LOC: MHCPAIN 15:15 | DX: G89.29 Other chronic pain (principal); M79.2 Neuralgia and neuritis, unspecified | CPT/HCPCS: G0463 ==

== ENCOUNTER 2018-06-24 16:36 | Emergency (ER) | payer MEDICAID ==
[~2018-06-24] VITALS: Ht 160 cm; Wt 113.6 kg
[2018-06-24 17:05] VITALS: BP 133/78; TEMP 97.2
[2018-06-24] MEDS ORDERED: MS CONTIN 330 MG/TAB PO (17:29)
[2018-06-24] MEDS ORDERED: ROXICODONE 55 MG/TAB PO (17:29)
[2018-06-24 17:37] VITALS: PULSE 88
== END 2018-06-24 17:38 | disposition home or self-care (01) ==
LOC: COL.ER 16:36
DX: G89.29 Other chronic pain (principal); M54.5 Low back pain; M79.672 Pain in left foot; M79.671 Pain in right foot; I25.10 Atherosclerotic heart disease of native coronary artery without angina pectoris; E11.9 Type 2 diabetes mellitus without complications; M79.7 Fibromyalgia; F17.210 Nicotine dependence, cigarettes, uncomplicated; Z79.4 Long term (current) use of insulin; Z79.82 Long term (current) use of aspirin

== ENCOUNTER → 2018-07-13 | Outpatient (CLI) | payer OTHER | LOC: COL.PUL 07:57 | DX: Z02.71 Encounter for disability determination (principal); Z87.891 Personal history of nicotine dependence ==

== ENCOUNTER → 2018-07-18 | Outpatient (CLI) | payer OTHER | LOC: MHCPAIN 15:37 | DX: G89.29 Other chronic pain (principal); M79.2 Neuralgia and neuritis, unspecified | CPT/HCPCS: G0463 ==

== ENCOUNTER 2018-08-03 16:08 | Outpatient (RCR) | payer MEDICAID ==
[2018-09-28] MEDS ORDERED: PROTONIX 40MG T40 MG PO (10:01)
== END 2018-11-01 | disposition home or self-care (01) ==
LOC: WSC
DX: G89.29 Other chronic pain (principal)

== ENCOUNTER 2018-09-03 21:20 | Emergency (ER) | payer MEDICAID ==
[~2018-09-03] VITALS: Ht 157.5 cm; Wt 113.6 kg
[2018-09-03 21:28] VITALS: TEMP 97.4
[2018-09-03 22:25] LABS: BASO # 0.1 (0.0-0.2); BASO % 0.8 % (0.0-2.0); EOS # 0.3 (0.0-0.7); EOS % 2.9 % (0-4.0); GRAN # 5.7 (1.4-6.5); GRAN % 58.9 % (42.2-75.2); HEMATOCRIT 42.1 % (37.0-47.0); HEMOGLOBIN 14.6 g/dl (12.5-16.0); LYMPH # 3.1 (1.2-3.4); MEAN CELL VOLUME 85 fl (80.0-100.0); MEAN CORPUSCULAR HEMOGLOBIN 29 pg (27.0-31.0); MEAN CORPUSCULAR HGB CONC 35 g/dl (33.0-37.0); MEAN PLATELET VOLUME 11.1 fl (7.4-10.4); MONO # 0.5 (0.1-0.6); MONO % 5.1 % (1.7-9.3); PLATELET COUNT 215 K/mm3 (130-400); RED BLOOD COUNT 4.98 M/mm3 (4.10-5.30); REDCELL DISTRIBUTION WIDTH-CV 13.3 % (11.5-14.5)
[2018-09-03 22:37] LABS: ALANINE AMINOTRANSFERASE 8 U/L (9-52); ALKALINE PHOSPHATASE 170 U/L (50-136); ANION GAP 12 mmol/L (7-16); AST,SGOT 16 U/L (15-37); BILIRUBIN,TOTAL 0.4 mg/dL (0.0-1.0); BLOOD UREA NITROGEN 16 mg/dL (7-17); CARBON DIOXIDE 27 mmol/L (22-30); CHLORIDE 99 mmol/L (98-107); CREATINE KINASE 52 U/L (30-135); CREATININE, serum 1.31 (0.52-1.25); GLUCOSE 287 mg/dL (74-106); POTASSIUM 3.4 mmol/L (3.4-5.0); SODIUM 138 mmol/L (137-145)
[2018-09-03 22:53] LABS: TROPONIN-I < 0.012 ng/mL (0.000-0.035)
[2018-09-03 23:47] VITALS: BP 104/68; PULSE 99
== END 2018-09-03 23:49 | disposition home or self-care (01) ==
LOC: COL.ER 21:20
PROVIDERS: Emergency Medicine
DX: R04.2 Hemoptysis (principal); I25.10 Atherosclerotic heart disease of native coronary artery without angina pectoris; E11.9 Type 2 diabetes mellitus without complications; I50.9 Heart failure, unspecified; M19.90 Unspecified osteoarthritis, unspecified site; M79.7 Fibromyalgia; G89.29 Other chronic pain; F17.290 Nicotine dependence, other tobacco product, uncomplicated; Z79.82 Long term (current) use of aspirin; Z86.718 Personal history of other venous thrombosis and embolism; Z87.09 Personal history of other diseases of the respiratory system

== ENCOUNTER 2018-09-28 06:19 | Emergency (ER) | payer MEDICAID ==
[~2018-09-28] VITALS: Ht 157.5 cm; Wt 113.6 kg
[2018-09-28 06:29] VITALS: TEMP 99.4
[2018-09-28 07:35] LABS: BASO # 0.1 (0.0-0.2); BASO % 0.5 % (0.0-2.0); EOS # 0.3 (0.0-0.7); EOS % 3.3 % (0-4.0); GRAN # 6.1 (1.4-6.5); GRAN % 60.2 % (42.2-75.2); HEMATOCRIT 41.2 % (37.0-47.0); MEAN CELL VOLUME 86 fl (80.0-100.0); MEAN CORPUSCULAR HEMOGLOBIN 29 pg (27.0-31.0); MEAN CORPUSCULAR HGB CONC 34 g/dl (33.0-37.0); MEAN PLATELET VOLUME 10.5 fl (7.4-10.4); MONO # 0.6 (0.1-0.6); MONO % 5.8 % (1.7-9.3); PLATELET COUNT 222 K/mm3 (130-400); REDCELL DISTRIBUTION WIDTH-CV 13.7 % (11.5-14.5)
[2018-09-28 07:39] LABS: ALANINE AMINOTRANSFERASE 7 U/L (9-52); ALBUMIN 3.8 gm/dL (3.5-5.0); ALKALINE PHOSPHATASE 145 U/L (50-136); ANION GAP 11 mmol/L (7-16); AST,SGOT 16 U/L (15-37); BILIRUBIN,TOTAL 0.4 mg/dL (0.0-1.0); BLOOD UREA NITROGEN 14 mg/dL (7-17); CALCIUM 9.3 mg/dL (8.4-10.2); CARBON DIOXIDE 30 mmol/L (22-30); CHLORIDE 104 mmol/L (98-107); GLUCOSE 115 mg/dL (74-106); INR 0.9 (0.8-3.0); LIPASE 23 U/L (23-300); POTASSIUM 3.2 mmol/L (3.4-5.0); PROTHROMBIN TIME 9.9 SECONDS (9.7-12.8); SODIUM 144 mmol/L (137-145)
[2018-09-28 07:41] LABS: PARTIAL THROMBOPLASTIN TIME 31.1 SECONDS (26.0-37.0)
[2018-09-28 07:44] LABS: D-DIMER < 200.00 ng/mLDDu (200-230)
[2018-09-28 07:51] LABS: TROPONIN-I < 0.012 ng/mL (0.000-0.035)
[2018-09-28] MEDS ORDERED: PROTONIX 40MG T40 MG PO (10:01)
[2018-09-28 10:03] VITALS: BP 109/60; PULSE 92
== END 2018-09-28 10:13 | disposition home or self-care (01) ==
LOC: COL.ER 06:19
PROVIDERS: Emergency Medicine
DX: R07.89 Other chest pain (principal); E11.9 Type 2 diabetes mellitus without complications; I25.10 Atherosclerotic heart disease of native coronary artery without angina pectoris; M79.7 Fibromyalgia; I50.9 Heart failure, unspecified; Z95.5 Presence of coronary angioplasty implant and graft; Z79.82 Long term (current) use of aspirin; Z79.4 Long term (current) use of insulin
CPT/HCPCS: J1170

== ENCOUNTER → 2018-10-03 | Outpatient (CLI) | payer MEDICAID | LOC: SUN.DIA 08-07 08:21 | DX: E11.40 Type 2 diabetes mellitus with diabetic neuropathy, unspecified (principal); E78.5 Hyperlipidemia, unspecified; E66.9 Obesity, unspecified | CPT/HCPCS: G0108 ==

== ENCOUNTER → 2018-10-10 | Outpatient (CLI) | payer MEDICAID | LOC: MHCPAIN 15:27 | DX: G89.29 Other chronic pain (principal); M79.2 Neuralgia and neuritis, unspecified | CPT/HCPCS: G0463 ==

== ENCOUNTER 2018-11-11 14:34 | Emergency (ER) | payer MEDICAID ==
[~2018-11-11] VITALS: Ht 157.5 cm; Wt 113.6 kg
[2018-11-11 14:41] VITALS: BP 165/108; TEMP 97.8
[2018-11-11 15:40] LABS: BASO # 0.1 (0.0-0.2); BASO % 0.6 % (0.0-2.0); EOS # 0.1 (0.0-0.7); GRAN # 9.4 (1.4-6.5); GRAN % 76.1 % (42.2-75.2); HEMATOCRIT 42.8 % (37.0-47.0); LYMPH # 2.2 (1.2-3.4); LYMPH % 17.6 % (20.0-51.0); MEAN CELL VOLUME 85 fl (80.0-100.0); MEAN CORPUSCULAR HEMOGLOBIN 30 pg (27.0-31.0); MEAN CORPUSCULAR HGB CONC 35 g/dl (33.0-37.0); MEAN PLATELET VOLUME 10.9 fl (7.4-10.4); MONO # 0.5 (0.1-0.6); MONO % 4.1 % (1.7-9.3); PLATELET COUNT 207 K/mm3 (130-400); RED BLOOD COUNT 5.05 M/mm3 (4.10-5.30); REDCELL DISTRIBUTION WIDTH-CV 13.4 % (11.5-14.5)
[2018-11-11 15:48] LABS: INR 0.9 (0.8-3.0); PROTHROMBIN TIME 10.8 SECONDS (9.7-12.8)
[2018-11-11 15:52] LABS: ALBUMIN 4.1 gm/dL (3.5-5.0); BILIRUBIN,TOTAL 0.8 mg/dL (0.0-1.0); CALCIUM 9.1 mg/dL (8.4-10.2); CREATININE, serum 1.14 (0.52-1.25); POTASSIUM 3.5 mmol/L (3.4-5.0); TOTAL PROTEIN 7.1 gm/dL (6.4-8.2)
[2018-11-11 16:03] LABS: TROPONIN-I 0.026 ng/mL (0.000-0.035)
[2018-11-11] MEDS ORDERED: CONSTULOSE 20G/30ML PO (18:53)
[2018-11-11 19:20] VITALS: PULSE 78
== END 2018-11-11 19:20 | disposition home or self-care (01) ==
LOC: COL.ER 14:34
PROVIDERS: Emergency Medicine
DX: K59.00 Constipation, unspecified (principal); I11.0 Hypertensive heart disease with heart failure; I50.9 Heart failure, unspecified; I25.2 Old myocardial infarction; E78.5 Hyperlipidemia, unspecified; Z79.4 Long term (current) use of insulin; F31.9 Bipolar disorder, unspecified; M54.9 Dorsalgia, unspecified; G89.29 Other chronic pain; E11.42 Type 2 diabetes mellitus with diabetic polyneuropathy; M79.7 Fibromyalgia; I25.5 Ischemic cardiomyopathy; Z79.82 Long term (current) use of aspirin; Z87.891 Personal history of nicotine dependence; Z95.5 Presence of coronary angioplasty implant and graft
CPT/HCPCS: J1170; J2405; J7030; Q9967

== ENCOUNTER → 2018-11-14 | Outpatient (CLI) | payer MEDICAID ==
[~2018-11-14] MED LIST changes: +CONSTULOSE 20G/30ML PO; +COZAAR 25MG25 MG/TAB PO; +LEVEMIR100 U/ML SQ; +TYLENOL 500MG500 MG PO
== END ==
LOC: COL.RAD 14:28
DX: M46.87 Other specified inflammatory spondylopathies, lumbosacral region (principal); M51.37 Other intervertebral disc degeneration, lumbosacral region

== ENCOUNTER 2018-11-16 06:34 | Day surgery (SDC) | payer MEDICAID ==
[~2018-11-16] VITALS: Ht 157.5 cm; Wt 109.8 kg
[2018-11-16] VITALS (13 sets, daily range): BP systolic 89–117; BP diastolic 44–87; PULSE 84–105; TEMP 98.5
[~2018-11-16 06:34] MED LIST changes: -COZAAR 25MG25 MG/TAB PO; -LEVEMIR100 U/ML SQ; -TYLENOL 500MG500 MG PO
[2018-11-16 07:54] LABS: HEMATOCRIT 39.3 % (37.0-47.0); HEMOGLOBIN 13.5 g/dl (12.5-16.0); MEAN CELL VOLUME 86 fl (80.0-100.0); MEAN CORPUSCULAR HEMOGLOBIN 30 pg (27.0-31.0); MEAN CORPUSCULAR HGB CONC 34 g/dl (33.0-37.0); MEAN PLATELET VOLUME 9.8 fl (7.4-10.4); PLATELET COUNT 258 K/mm3 (130-400); RED BLOOD COUNT 4.58 M/mm3 (4.10-5.30); REDCELL DISTRIBUTION WIDTH-CV 13.5 % (11.5-14.5)
[2018-11-16 07:59] LABS: PROTHROMBIN TIME 11.6 SECONDS (9.7-12.8)
[2018-11-16 08:07] LABS: CALCIUM 9.3 mg/dL (8.4-10.2); CREATININE, serum 1.5 (0.52-1.25); POTASSIUM 3.3 mmol/L (3.4-5.0)
[2018-11-16] MEDS ORDERED: LEVEMIR100 U/ML SQ (08:18)
[2018-11-16] MEDS ORDERED: TYLENOL 500MG500 MG PO (08:19)
[2018-11-16] MEDS ORDERED: LASIX 40MG TABL40 MG PO (08:20)
[2018-11-16] MEDS ORDERED: NITROSTAT0.4 MG/TAB SL (08:20)
[2018-11-16] MEDS ORDERED: COREG 6.256.25 MG/TA PO (08:23)
[2018-11-16] MEDS ORDERED: PROTONIX 40MG T40 MG PO (08:23)
[2018-11-16] MEDS ORDERED: MS CONTIN 330 MG/TAB PO (08:24)
[2018-11-16] MEDS ORDERED: BRILINTA90 MG PO (08:26)
--- NOTE | 2018-11-16 09:14 | NUR ---
PT TO PROCEDURE,REPORT TO YUNIEL ALVAREZ
--- NOTE | 2018-11-16 09:18 | NUR ---
SEE MERGE DOCUMENTATION FOR MEDICATION ADMINISTRATION TIMES AND INTRA/POST PROCEDURE SEDATION ASSESSMENTS. RIGHT RADIAL PULSE +1 WITH POSITIVE BARBEAU TEST; MD NOTIFIED. PLAN TO PROCEED WITH RIGHT RADIAL APPROACH.
[2018-11-16] MEDS ORDERED: COZAAR 25MG25 MG/TAB PO (10:44)
--- NOTE | 2018-11-16 15:15 | NUR ---
Discharge instructions given to pt pt verbalizes understanding.pt ambulated to toilet.INT removed,catheter tip intact.Pt escorted out via wheelchair by this nurse.
== END 2018-11-16 15:19 | disposition home or self-care (01) ==
LOC: COL.CAR 06:34
PROVIDERS: Internal Medicine Cardiovascular Disease
DX: I25.110 Atherosclerotic heart disease of native coronary artery with unstable angina pectoris (principal); R94.39 Abnormal result of other cardiovascular function study; E11.9 Type 2 diabetes mellitus without complications; I50.9 Heart failure, unspecified; J44.9 Chronic obstructive pulmonary disease, unspecified; I44.7 Left bundle-branch block, unspecified; F31.9 Bipolar disorder, unspecified; I25.2 Old myocardial infarction; I48.0 Paroxysmal atrial fibrillation; Z95.5 Presence of coronary angioplasty implant and graft; Z87.891 Personal history of nicotine dependence; Z88.1 Allergy status to other antibiotic agents
CPT/HCPCS: C1760; C1769; C1894; J1644; J2250; J3010; Q9967

== ENCOUNTER → 2019-01-09 | Outpatient (CLI) | payer MEDICAID ==
[~2019-01-09] MED LIST changes: +COZAAR 25MG25 MG/TAB PO; +LEVEMIR100 U/ML SQ; +TYLENOL 500MG500 MG PO
== END ==
LOC: MHCPAIN 13:49
DX: G89.29 Other chronic pain (principal); M47.817 Spondylosis without myelopathy or radiculopathy, lumbosacral region; M53.3 Sacrococcygeal disorders, not elsewhere classified
CPT/HCPCS: G0463

== ENCOUNTER 2019-01-11 21:19 | Emergency (ER) | payer MEDICAID ==
[~2019-01-11] VITALS: Ht 157.5 cm; Wt 113.6 kg
[2019-01-11 21:22] VITALS: TEMP 97.6
[2019-01-11 22:03] LABS: BASO # 0.1 (0.0-0.2); BASO % 0.7 % (0.0-2.0); EOS # 0.4 (0.0-0.7); EOS % 3.3 % (0-4.0); GRAN # 7.6 (1.4-6.5); GRAN % 71.4 % (42.2-75.2); HEMATOCRIT 40.1 % (37.0-47.0); HEMOGLOBIN 13.3 g/dl (12.5-16.0); LYMPH % 19.1 % (20.0-51.0); MEAN CELL VOLUME 91 fl (80.0-100.0); MEAN CORPUSCULAR HEMOGLOBIN 30 pg (27.0-31.0); MEAN CORPUSCULAR HGB CONC 33 g/dl (33.0-37.0); MONO # 0.5 (0.1-0.6); MONO % 4.8 % (1.7-9.3); PLATELET COUNT 289 K/mm3 (130-400); RED BLOOD COUNT 4.43 M/mm3 (4.10-5.30); REDCELL DISTRIBUTION WIDTH-CV 13.8 % (11.5-14.5)
[2019-01-11 22:17] LABS: BILIRUBIN,TOTAL 0.6 mg/dL (0.0-1.0); C-REACTIVE PROTEIN 0.8 mg/dL (0.0-0.9); CALCIUM 9.2 mg/dL (8.4-10.2); CREATININE, serum 1.54 (0.52-1.25); POTASSIUM 4.6 mmol/L (3.4-5.0)
[2019-01-11 23:40] VITALS: BP 96/61; PULSE 82
== END 2019-01-11 23:40 | disposition home or self-care (01) ==
LOC: COL.ER 21:19
PROVIDERS: Family Medicine
DX: E86.0 Dehydration (principal); I42.9 Cardiomyopathy, unspecified; I95.9 Hypotension, unspecified; I25.2 Old myocardial infarction; I10 Essential (primary) hypertension; E11.9 Type 2 diabetes mellitus without complications; F17.210 Nicotine dependence, cigarettes, uncomplicated; Z79.4 Long term (current) use of insulin; Z79.82 Long term (current) use of aspirin
CPT/HCPCS: J7030

== ENCOUNTER 2019-02-23 18:07 | Emergency (ER) | payer MEDICAID ==
[~2019-02-23] VITALS: Ht 157.5 cm; Wt 113.6 kg
[2019-02-23 19:08] LABS: BASO # 0.1 (0.0-0.2); BASO % 0.8 % (0.0-2.0); EOS # 0.5 (0.0-0.7); EOS % 3.6 % (0-4.0); GRAN # 8.3 (1.4-6.5); HEMATOCRIT 48.5 % (37.0-47.0); HEMOGLOBIN 16.1 g/dl (12.5-16.0); LYMPH # 4.5 (1.2-3.4); LYMPH % 31.2 % (20.0-51.0); MEAN CELL VOLUME 89 fl (80.0-100.0); MEAN CORPUSCULAR HEMOGLOBIN 30 pg (27.0-31.0); MEAN CORPUSCULAR HGB CONC 33 g/dl (33.0-37.0); MEAN PLATELET VOLUME 10.5 fl (7.4-10.4); MONO # 0.9 (0.1-0.6); MONO % 6.1 % (1.7-9.3); PLATELET COUNT 297 K/mm3 (130-400); RED BLOOD COUNT 5.44 M/mm3 (4.10-5.30)
[2019-02-23] MEDS ORDERED: LINZESS145CAP (19:12)
[2019-02-23] MEDS ORDERED: VITAMIN D 1001000 IU (19:20)
[2019-02-23 19:21] LABS: ALBUMIN 4.7 gm/dL (3.5-5.0); BILIRUBIN,TOTAL 0.8 mg/dL (0.0-1.0); CALCIUM 9.7 mg/dL (8.4-10.2); CREATININE, serum 1.56 (0.52-1.25); POTASSIUM 3.8 mmol/L (3.4-5.0)
[2019-02-23 19:48] LABS: C-REACTIVE PROTEIN 1.1 mg/dL (0.0-0.9)
[2019-02-23 20:03] LABS: TROPONIN-I < 0.012 ng/mL (0.000-0.035)
[2019-02-23 21:40] VITALS: BP 104/78; PULSE 93; TEMP 98.2
== END 2019-02-23 21:40 | disposition left against medical advice (07) ==
LOC: COL.ER 18:07
PROVIDERS: Emergency Medicine
DX: R42 Dizziness and giddiness (principal); R06.00 Dyspnea, unspecified; E78.5 Hyperlipidemia, unspecified; E66.9 Obesity, unspecified; I25.10 Atherosclerotic heart disease of native coronary artery without angina pectoris; I50.9 Heart failure, unspecified; E11.9 Type 2 diabetes mellitus without complications; I11.0 Hypertensive heart disease with heart failure; F17.210 Nicotine dependence, cigarettes, uncomplicated; Z79.82 Long term (current) use of aspirin; Z79.4 Long term (current) use of insulin
CPT/HCPCS: J7030

== ENCOUNTER → 2019-04-03 | Outpatient (CLI) | payer MEDICAID ==
[~2019-04-03] MED LIST changes: +LINZESS145CAP; +VITAMIN D 1001000 IU
== END ==
LOC: MHCPAIN 15:01
DX: M47.817 Spondylosis without myelopathy or radiculopathy, lumbosacral region (principal); M53.3 Sacrococcygeal disorders, not elsewhere classified
CPT/HCPCS: G0463

== ENCOUNTER 2019-04-07 20:51 | Emergency (ER) | payer MEDICAID ==
[~2019-04-07] VITALS: Ht 157.5 cm; Wt 113.6 kg
[2019-04-07 21:22] LABS: BASO # 0.1 (0.0-0.2); BASO % 0.7 % (0.0-2.0); EOS # 0.4 (0.0-0.7); EOS % 3.1 % (0-4.0); GRAN # 7.9 (1.4-6.5); GRAN % 58.4 % (42.2-75.2); HEMATOCRIT 44.3 % (37.0-47.0); HEMOGLOBIN 14.6 g/dl (12.5-16.0); LYMPH # 4.1 (1.2-3.4); LYMPH % 30.7 % (20.0-51.0); MEAN CELL VOLUME 87 fl (80.0-100.0); MEAN CORPUSCULAR HEMOGLOBIN 29 pg (27.0-31.0); MEAN CORPUSCULAR HGB CONC 33 g/dl (33.0-37.0); MONO # 0.9 (0.1-0.6); MONO % 6.7 % (1.7-9.3); PLATELET COUNT 270 K/mm3 (130-400); RED BLOOD COUNT 5.07 M/mm3 (4.10-5.30); REDCELL DISTRIBUTION WIDTH-CV 12.6 % (11.5-14.5)
[2019-04-07] MEDS ORDERED: ROXICODONE 55 MG/TAB PO (21:30)
[2019-04-07 21:34] LABS: ALANINE AMINOTRANSFERASE 23 U/L (9-52); ALBUMIN 4.2 gm/dL (3.5-5.0); ALKALINE PHOSPHATASE 154 U/L (50-136); ANION GAP 8 mmol/L (7-16); AST,SGOT 19 U/L (15-37); BILIRUBIN,TOTAL 0.3 mg/dL (0.0-1.0); BLOOD UREA NITROGEN 17 mg/dL (7-17); CALCIUM 9.2 mg/dL (8.4-10.2); CARBON DIOXIDE 28 mmol/L (22-30); CHLORIDE 107 mmol/L (98-107); GLUCOSE 51 mg/dL (74-106); POTASSIUM 3.7 mmol/L (3.4-5.0); SODIUM 143 mmol/L (137-145); TOTAL PROTEIN 7.3 gm/dL (6.4-8.2)
[2019-04-07 21:46] LABS: TROPONIN-I < 0.012 ng/mL (0.000-0.035)
[2019-04-08 00:50] VITALS: BP 114/82; PULSE 82; TEMP 98.8
== END 2019-04-08 00:55 | disposition home or self-care (01) ==
LOC: COL.ER 20:51
PROVIDERS: Physician Assistant
DX: E11.649 Type 2 diabetes mellitus with hypoglycemia without coma (principal); R55 Syncope and collapse; I25.2 Old myocardial infarction; Z79.4 Long term (current) use of insulin
CPT/HCPCS: J2270; J7030

== ENCOUNTER 2019-05-08 13:16 | Emergency (ER) | payer MEDICAID ==
[~2019-05-08] VITALS: Ht 157.5 cm; Wt 113.6 kg
[2019-05-08 13:20] VITALS: TEMP 96.5
[2019-05-08 14:11] LABS: COLLECTION METHOD CLEAN CATCH
[2019-05-08 14:15] LABS: BASO # 0.1 (0.0-0.2); BASO % 0.5 % (0.0-2.0); EOS # 0.1 (0.0-0.7); EOS % 0.6 % (0-4.0); GRAN % 67.1 % (42.2-75.2); HEMATOCRIT 41.3 % (37.0-47.0); HEMOGLOBIN 14.5 g/dl (12.5-16.0); LYMPH % 26.8 % (20.0-51.0); MEAN CELL VOLUME 82 fl (80.0-100.0); MEAN CORPUSCULAR HEMOGLOBIN 29 pg (27.0-31.0); MEAN CORPUSCULAR HGB CONC 35 g/dl (33.0-37.0); MEAN PLATELET VOLUME 10.4 fl (7.4-10.4); MONO # 0.7 (0.1-0.6); MONO % 4.6 % (1.7-9.3); PLATELET COUNT 253 K/mm3 (130-400); RED BLOOD COUNT 5.01 M/mm3 (4.10-5.30); REDCELL DISTRIBUTION WIDTH-CV 12.5 % (11.5-14.5)
[2019-05-08 14:22] LABS: PH 5 (5-8); SQUAMOUS EPITHELIAL 0-2 /hpf; URINE APPEARANCE Clear; URINE BACTERIA None Seen /hpf; URINE BILIRUBIN Negative (NEGATIVE); URINE BLOOD Negative (NEGATIVE); URINE COLOR Yellow; URINE GLUCOSE 3+ (NEGATIVE); URINE KETONE Negative (NEGATIVE); URINE LEUKOCYTE ESTERASE Negative (NEGATIVE); URINE NITRATE Negative (NEGATIVE); URINE PROTEIN(semi-quant) Negative (NEGATIVE); URINE RBC 0-2 /hpf; URINE UROBILINOGEN Negative (NEGATIVE)
[2019-05-08 14:29] LABS: ALBUMIN 4.2 gm/dL (3.5-5.0); BILIRUBIN,TOTAL 0.8 mg/dL (0.0-1.0); C-REACTIVE PROTEIN 1.4 mg/dL (0.0-0.9); CALCIUM 9.1 mg/dL (8.4-10.2); CREATININE, serum 1.12 (0.52-1.25); POTASSIUM 3.5 mmol/L (3.4-5.0); TOTAL PROTEIN 7.4 gm/dL (6.4-8.2)
[2019-05-08 17:20] VITALS: BP 106/82; PULSE 110
== END 2019-05-08 17:20 | disposition home or self-care (01) ==
LOC: COL.ER 13:16
PROVIDERS: Nurse Practitioner
DX: R10.11 Right upper quadrant pain (principal); K80.80 Other cholelithiasis without obstruction; I50.9 Heart failure, unspecified; I25.10 Atherosclerotic heart disease of native coronary artery without angina pectoris; I25.2 Old myocardial infarction; Z95.9 Presence of cardiac and vascular implant and graft, unspecified; Z79.82 Long term (current) use of aspirin; Z79.4 Long term (current) use of insulin
CPT/HCPCS: J2270; J2405; J7030; Q9967

== ENCOUNTER 2019-06-27 10:47 | Day surgery (SDC) | payer MEDICAID ==
[~2019-06-27] VITALS: Ht 157.5 cm; Wt 108.4 kg
[2019-06-27 12:18] LABS: HEMOGLOBIN 14.3 g/dl (12.5-16.0); MEAN CELL VOLUME 86 fl (80.0-100.0); MEAN CORPUSCULAR HEMOGLOBIN 29 pg (27.0-31.0); MEAN CORPUSCULAR HGB CONC 34 g/dl (33.0-37.0); MEAN PLATELET VOLUME 10.7 fl (7.4-10.4); PLATELET COUNT 294 K/mm3 (130-400); RED BLOOD COUNT 4.91 M/mm3 (4.10-5.30); REDCELL DISTRIBUTION WIDTH-CV 13.3 % (11.5-14.5)
[2019-06-27 12:36] VITALS: BP 117/99; PULSE 110; TEMP 98.4
--- NOTE | 2019-06-27 14:23 | NUR ---
INT came out when pt got dressed. Discharge instructions given.
--- NOTE | 2019-06-27 14:24 | NUR ---
Transferred to private car by paolo
== END 2019-06-27 14:24 | disposition home or self-care (01) ==
LOC: COL.CAR 10:47
PROVIDERS: Internal Medicine Cardiovascular Disease
DX: I25.5 Ischemic cardiomyopathy (principal); I95.9 Hypotension, unspecified; F41.9 Anxiety disorder, unspecified; F10.20 Alcohol dependence, uncomplicated; J45.909 Unspecified asthma, uncomplicated; I25.10 Atherosclerotic heart disease of native coronary artery without angina pectoris; F32.9 Major depressive disorder, single episode, unspecified; I50.22 Chronic systolic (congestive) heart failure; E11.9 Type 2 diabetes mellitus without complications; I44.7 Left bundle-branch block, unspecified; I25.2 Old myocardial infarction; I48.0 Paroxysmal atrial fibrillation; H90.5 Unspecified sensorineural hearing loss; Z87.891 Personal history of nicotine dependence; Z88.8 Allergy status to other drugs, medicaments and biological substances; Z79.4 Long term (current) use of insulin; Z53.8 Procedure and treatment not carried out for other reasons

== ENCOUNTER 2019-07-02 05:17 | Inpatient (IN) | payer MEDICAID ==
[~2019-07-02] VITALS: Ht 157.5 cm; Wt 108.4 kg
[~2019-07-02 05:17] MED LIST changes: -LINZESS145CAP
[2019-07-02 05:45] LABS: BASO # 0.1 (0.0-0.2); BASO % 0.7 % (0.0-2.0); EOS # 0.8 (0.0-0.7); EOS % 4.3 % (0-4.0); GRAN # 13.4 (1.4-6.5); HEMATOCRIT 45.6 % (37.0-47.0); HEMOGLOBIN 15.2 g/dl (12.5-16.0); LYMPH # 3.4 (1.2-3.4); MEAN CELL VOLUME 85 fl (80.0-100.0); MEAN CORPUSCULAR HEMOGLOBIN 29 pg (27.0-31.0); MEAN CORPUSCULAR HGB CONC 33 g/dl (33.0-37.0); MONO # 1.1 (0.1-0.6); MONO % 5.7 % (1.7-9.3); PLATELET COUNT 266 K/mm3 (130-400); RED BLOOD COUNT 5.34 M/mm3 (4.10-5.30); REDCELL DISTRIBUTION WIDTH-CV 13.1 % (11.5-14.5)
[2019-07-02 05:54] LABS: ALBUMIN 4.3 gm/dL (3.5-5.0); BILIRUBIN,TOTAL 0.6 mg/dL (0.0-1.0); CALCIUM 9.8 mg/dL (8.4-10.2); CREATININE, serum 1.22 (0.52-1.25); POTASSIUM 4.3 mmol/L (3.4-5.0); TOTAL PROTEIN 7.3 gm/dL (6.4-8.2)
[2019-07-02 05:59] LABS: INR 0.9 (0.8-3.0)
[2019-07-02 06:02] LABS: PARTIAL THROMBOPLASTIN TIME 31.4 SECONDS (26.0-37.0)
[2019-07-02 06:05] LABS: TROPONIN-I 0.022 ng/mL (0.000-0.035)
[2019-07-02] MEDS ORDERED: VICTOZA6 MG/ML SQ (08:19)
[2019-07-02 09:06] VITALS: BP 154/96; PULSE 122; TEMP 97.7
--- NOTE | 2019-07-02 09:15 | NUR ---
Patient to room 314 by wheelchair from ED. Nurse oriented patient to room, casandra light and bed. Patient A&Ox4, reporting pain in RUQ rating 8/10. Requesting pain medication. VSS. BP hypertensive HR tachycardic. Telemetry on chest and being monitored. IV CDI. Patient reporting being nauseous. Patient NPO. No further needs expressed from patient. Call light within reach
[2019-07-02] MEDS ORDERED: CYMBALTA 30MG30 MG PO (09:16)
[2019-07-02 09:45] LABS: COLLECTION METHOD CLEAN CATCH
[2019-07-02 09:52] LABS: MUCOUS Present /lpf; PH 6 (5-8); SQUAMOUS EPITHELIAL None Seen /hpf; URINE APPEARANCE Clear; URINE BACTERIA None Seen /hpf; URINE BILIRUBIN Negative (NEGATIVE); URINE BLOOD 3+ (NEGATIVE); URINE COLOR Yellow; URINE GLUCOSE 3+ (NEGATIVE); URINE KETONE Negative (NEGATIVE); URINE LEUKOCYTE ESTERASE Negative (NEGATIVE); URINE NITRATE Negative (NEGATIVE); URINE PROTEIN(semi-quant) Negative (NEGATIVE); URINE RBC >50 /hpf; URINE UROBILINOGEN Negative (NEGATIVE)
[2019-07-02 11:38] VITALS: BP 157/94; PULSE 122; TEMP 98.8
[2019-07-02 15:12] VITALS: BP 133/99; PULSE 124; TEMP 97.7
--- NOTE | 2019-07-02 18:30 | NUR ---
Patient has had complaint of pain in RUQ that has been unrelieved with pain medication. Patient is now on a clear liquid diet, has been NPO since being on the floor. VSS HR tachycardic. IV CDI, fluids infusing. Patient has been emotional in room, crying off and on, nursing staff talking with patient to decrease fear and anxiety. No further needs expressed from patient. Call light within reach
[2019-07-02 19:08] VITALS: BP 127/80; PULSE 113; TEMP 97.4
--- NOTE | 2019-07-02 20:42 | NUR ---
Resting in bed. Assessment complete. Lungs clear. Heart sounds normal. Bowels active x4. Pulses present throughout. No edema noted. Skin warm and clammy. Patient reports feeling warm. Temperature 98.1. Patient reports pain 7/10. Provided with scheduled MS contin. Blood sugar 400 per [employer] SALES REPRESENTATIVE rechecked at 421. Mihaela SZYMANSKI notified. BNP ordered. Lab in room. Patient denies other needs. Will monitor.
--- NOTE | 2019-07-02 21:19 | NUR ---
Blood sugar recheck 427. Per Mihaela SZYMANSKI give 10 units of IV insulin. Dose verified by Ehsan BRICE
[2019-07-02 21:54] LABS: CALCIUM 9.3 mg/dL (8.4-10.2); CREATININE, serum 1.26 (0.52-1.25); POTASSIUM 4.2 mmol/L (3.4-5.0)
[2019-07-02 23:10] VITALS: BP 107/60; PULSE 109; TEMP 98.9
--- NOTE | 2019-07-02 23:30 | NUR ---
Per Mihaela give patient ten extra units of levemir. Will provide to patient.
--- NOTE | 2019-07-03 00:50 | NUR ---
Resting in bed. Reports 11/01. Provided with PRN oxycodone. Will monitor.
--- NOTE | 2019-07-03 02:18 | NUR ---
Reports continued pain in ABD pain 10/02. Request PRN morphine. Provided to patient. Will monitor.
[2019-07-03 02:58] LABS: HEMATOCRIT 43.8 % (37.0-47.0); HEMOGLOBIN 14.7 g/dl (12.5-16.0); MEAN CELL VOLUME 86 fl (80.0-100.0); MEAN CORPUSCULAR HEMOGLOBIN 29 pg (27.0-31.0); MEAN CORPUSCULAR HGB CONC 34 g/dl (33.0-37.0); MEAN PLATELET VOLUME 10.2 fl (7.4-10.4); RED BLOOD COUNT 5.09 M/mm3 (4.10-5.30); REDCELL DISTRIBUTION WIDTH-CV 13.3 % (11.5-14.5)
[2019-07-03 03:08] LABS: CALCIUM 9.3 mg/dL (8.4-10.2); CREATININE, serum 1.38 (0.52-1.25); MAGNESIUM 1.8 mg/dL (1.6-2.3); POTASSIUM 4.2 mmol/L (3.4-5.0)
[2019-07-03 03:42] LABS: BAND 1 % (0-10); EOSINOPHIL 1 % (0-4); LYMPHOCYTE 33 % (20.0-51.0); NEUTROPHILS 59 % (42.0-75.2); PLATELET ESTIMATE NORMAL (NORMAL)
[2019-07-03 03:44] LABS: PLATELET COUNT 182 K/mm3 (130-400)
[2019-07-03 03:46] VITALS: BP 133/97; PULSE 107; TEMP 98.7
--- NOTE | 2019-07-03 04:42 | NUR ---
Reported ABD pain. Provided with PRN percocet. Denies other needs/
--- NOTE | 2019-07-03 06:34 | NUR ---
Patient require x1 dose of morphine and x2 doses of oxycodone. Sugars high at beginning of night. Resolved with sliding and IV insulin. Monitored throughout night. Otherwise uneventful night. Resting in bed this AM.
--- NOTE | 2019-07-03 07:41 | NUR ---
Report given to YUNIEL Whaley
[2019-07-03 08:05] VITALS: BP 119/73; PULSE 69; TEMP 98.9
--- NOTE | 2019-07-03 08:51 | NUR ---
PATIENT IS ALERT AND ORIENTED. COMPLAIN OF PAIN TO THE RUQ ABDOMEN AND FEET DUE TO NEUROPATHY. PATIENT IS CURRENTLY ON CLEAR LIQUID. PATIENT AFFECT IS PLEASANT. ON 0.9NS AT 75mL/HR. PATIENT IS RESTING IN BED.
--- NOTE | 2019-07-03 10:50 | NUR ---
Initial visit; Patient appeared to be experiencing pain and discomfort along with emotional upset. Cloth Carrier offered comfort and God's blessings. Patient requested that Cloth Carrier keep her in her prayers.
[2019-07-03 16:11] VITALS: BP 111/63; PULSE 105; TEMP 98
--- NOTE | 2019-07-03 16:11 | NUR ---
Button Reclaimer met with patient and patient's life partner Haider (ph#[phone]) to discuss discharge planning. Patient lives in [place] with Haider and sees Dr. Mitchell for primary care. Patient obtains medications from [facility] with no difficulties. Patient is in the process of obtaining a CPAP from [facility]. Patient also uses a wheelchair for anytime she has to walk more than 50 feet. Patient states she gets around her home okay and also has seven hours a week from [facility] to assist with cleaning, cooking, and bathing. These services are funded by the Physical Disability Waiver through [employer]. Patient states she may need some more assistance once she gets home if she ends up having surgery. Patient states her DPOA-HC is Haider and that she plans on returning home upon discharge. SAROJ left a message for patient's [employer] Datast[employer] Consultant Patricia (ph#[phone]). SAROJ contacted [facility] and faxed updates. SAROJ to continue to follow.
--- NOTE | 2019-07-03 17:16 | NUR ---
Patient said her pain got better. pain reduced from 8/10 to 5/10. pain was managed with morphine, oxycodone. diet has been advanced from clear liquid to lowfat/ADA. Family-Haider visit today. patient is currently resting in bed.
[2019-07-03 20:33] VITALS: BP 106/61; PULSE 100; TEMP 97.8
--- NOTE | 2019-07-03 21:00 | NUR ---
Resting in bed. Assessment complete. Lungs clear. Heart sounds normal. Bowels hypoactive at this time. Pulses present throughout. No edema noted. INT right wrist flushed without complications. Reports 11/01. Given scheules MS contin. Denies other needs at this time. Call light in reach.
--- NOTE | 2019-07-03 21:35 | NUR ---
Patient reports IV leaking after start of zosyn. IV assessed and restarted in right forearm at this time. Request PRN morphine for continued ABD pain and left shoulder pain. Provided at this time. Denies other needs. Call light in reach.
[2019-07-03 23:53] VITALS: BP 102/61; PULSE 110; TEMP 98.7
--- NOTE | 2019-07-04 01:41 | NUR ---
Telemetry called stating patient pulse 130s. Upon assessment patient just sat down from remaking bed and picking up cup dropped. Educated patient to call for help and pulse elevation. Denies symptoms. Will monitor.
[2019-07-04 04:23] VITALS: BP 128/94; PULSE 112; TEMP 99.4
--- NOTE | 2019-07-04 04:40 | NUR ---
Reports 5/10 ABD pain. Provided with oxycodone PRN. Denies other needs. Call light in reach.
--- NOTE | 2019-07-04 05:48 | NUR ---
Patient required x1 dose of morphine and x1 dose of oxycodone for pain throughout night. Otherwise uneventful night. Resting in bed this AM. Call light in reach.
[2019-07-04 06:20] LABS: BASO # 0.1 (0.0-0.2); BASO % 0.4 % (0.0-2.0); EOS # 0.4 (0.0-0.7); EOS % 3.3 % (0-4.0); GRAN # 7.1 (1.4-6.5); GRAN % 58.8 % (42.2-75.2); HEMATOCRIT 37.2 % (37.0-47.0); LYMPH # 3.6 (1.2-3.4); LYMPH % 29.9 % (20.0-51.0); MEAN CELL VOLUME 88 fl (80.0-100.0); MEAN CORPUSCULAR HEMOGLOBIN 29 pg (27.0-31.0); MEAN CORPUSCULAR HGB CONC 33 g/dl (33.0-37.0); MEAN PLATELET VOLUME 10.2 fl (7.4-10.4); MONO # 0.9 (0.1-0.6); MONO % 7.2 % (1.7-9.3); PLATELET COUNT 184 K/mm3 (130-400); RED BLOOD COUNT 4.23 M/mm3 (4.10-5.30); REDCELL DISTRIBUTION WIDTH-CV 13.2 % (11.5-14.5)
[2019-07-04 06:27] LABS: CALCIUM 8.7 mg/dL (8.4-10.2); CREATININE, serum 1.61 (0.52-1.25); POTASSIUM 3.8 mmol/L (3.4-5.0)
[2019-07-04 06:31] LABS: HEMOGLOBIN 12.4 g/dl (12.5-16.0)
--- NOTE | 2019-07-04 06:59 | NUR ---
Report given to YUNIEL Denise
--- NOTE | 2019-07-04 08:24 | NUR ---
Patient cheerful this AM. Voices only c/o left shoulder pain from a previous rotator cuff tear. She verbalizes this is chronic for her. Denies any nausea/abdominal pain this AM. She states that it feels as if she needs to have gas. Denies any other needs. Up to chair this AM for breakfast. Call light in place
[2019-07-04 08:36] VITALS: BP 92/55; PULSE 97; TEMP 97.8
--- NOTE | 2019-07-04 08:46 | NUR ---
Call recieved from Tele that patient has been tachy for a period of time. Order recieved to obtain EKG. Order placed and respitory made aware.
[2019-07-04 11:55] VITALS: BP 105/72; PULSE 109; TEMP 97.7
--- NOTE | 2019-07-04 13:39 | NUR ---
Federal District Clerk contacted Patricia [employer] Feed Blender for the PD Waiver and scanned updates to victor [email or web address]. SW to continue to follow.
[2019-07-04 14:42] LABS: HEMOGLOBIN 12.2 g/dl (12.5-16.0)
[2019-07-04 14:43] LABS: HEMATOCRIT 36.5 % (37.0-47.0)
[2019-07-04 16:55] VITALS: BP 100/56; PULSE 95; TEMP 98.1
--- NOTE | 2019-07-04 18:54 | NUR ---
Patient has had an uneventful day. Up to the chair this AM for breakfast. Patient took shower today with assist of PCT; bedding changed. Patient has slept off and on throughout the day. Denies any needs. Given pain medication this afternoon for c/o shoulder pain.
[2019-07-04 20:07] VITALS: BP 112/72; PULSE 99
--- NOTE | 2019-07-04 20:25 | NUR ---
Resting in bed with at bedside. Assessment complete. Lungs clear. Heart sounds normal. Bowels active x4. Pulses strong throughout. No edema noted at this time. IV zosyn started at this time. Patient reports left shoulder pain for rotator cuff injury with radiation to mid epigastric region. Given PRN morphine with scheduled MS contin at this time. 2039: Patient reports pain slowly decreasing in intensity. Localized pain to left shoulder at this time. Will monitor.
--- NOTE | 2019-07-04 21:50 | NUR ---
Patient requested PRN oxycodone. Will provide.
--- NOTE | 2019-07-04 22:20 | NUR ---
Patient reports pain decreased to 6/10. Denies other needs. Call light in reach
[2019-07-05] VITALS: BP 127/75; PULSE 109; TEMP 98.2
--- NOTE | 2019-07-05 00:05 | NUR ---
Patient reports pain resolving. Denies other needs at this time. Rates pain 5/10 in left shoulder and ABD.
[2019-07-05 02:58] VITALS: BP 142/80; PULSE 106; TEMP 99
--- NOTE | 2019-07-05 02:59 | NUR ---
Reports 5/10 left shoulder pain. Provided with PRN oxycodone at patient request. Denies other needs at this time.
--- NOTE | 2019-07-05 04:00 | NUR ---
Resting in bed. Denies needs. Call light in reach.
--- NOTE | 2019-07-05 06:02 | NUR ---
Patient had uneventful night. Resting in bed this AM.
--- NOTE | 2019-07-05 07:39 | NUR ---
Report given to YUNIEL Delvalle
[2019-07-05 07:56] VITALS: BP 133/81; PULSE 98; TEMP 99.3
[2019-07-05 08:21] LABS: BASO # 0.1 (0.0-0.2); BASO % 0.4 % (0.0-2.0); EOS # 0.4 (0.0-0.7); EOS % 3.6 % (0-4.0); GRAN # 7.2 (1.4-6.5); GRAN % 62.9 % (42.2-75.2); HEMOGLOBIN 11.5 g/dl (12.5-16.0); LYMPH # 2.9 (1.2-3.4); LYMPH % 25.2 % (20.0-51.0); MEAN CELL VOLUME 88 fl (80.0-100.0); MEAN CORPUSCULAR HEMOGLOBIN 28 pg (27.0-31.0); MEAN CORPUSCULAR HGB CONC 32 g/dl (33.0-37.0); MEAN PLATELET VOLUME 10.3 fl (7.4-10.4); MONO # 0.9 (0.1-0.6); MONO % 7.5 % (1.7-9.3); PLATELET COUNT 184 K/mm3 (130-400); RED BLOOD COUNT 4.09 M/mm3 (4.10-5.30); REDCELL DISTRIBUTION WIDTH-CV 12.9 % (11.5-14.5)
[2019-07-05 08:27] LABS: CALCIUM 8.9 mg/dL (8.4-10.2); CREATININE, serum 1.46 (0.52-1.25); POTASSIUM 4.5 mmol/L (3.4-5.0)
[2019-07-05 08:28] LABS: HEMATOCRIT 35.9 % (37.0-47.0)
--- NOTE | 2019-07-05 08:30 | NUR ---
Patient sitting up in bed eating breakfast at this time. Patient is alert and oriented, answers questions appropriately. Patient denies pain, nausea, or needs at this time, call light within reach.
[2019-07-05] MEDS ORDERED: ZESTRIL 5MG5 MG PO ×2 (09:43)
[2019-07-05] MEDS ORDERED: COREG 6.256.25 MG/TA PO (09:43)
[2019-07-05] MEDS ORDERED: CIPRO 500MG TA500 MG PO (09:49)
[2019-07-05] MEDS ORDERED: FLAGYL500 MG PO (09:49)
--- NOTE | 2019-07-05 11:07 | NUR ---
Nitro Worker attended clinical rounds with the team and patient to discharge home today. Patient has in home services provided by [facility], funded by the PD Waiver through [employer]. Patient states she has an RN scheduled to visit her this afternoon. Patient states she is ready to go home today. SW contacted Catalina Gomez Shop Foreman and left a message notifying her of discharge. No additional needs at this time.
[2019-07-05 12:12] VITALS: BP 134/66; PULSE 97; TEMP 98.1
--- NOTE | 2019-07-05 13:30 | NUR ---
Discharge teaching completed. Discharge medications and appointments were discussed. Patient and verbalized understanding. IV removed, catheter intact, hemostasis achieved. Patient escorted out by medical staff via wheelchair to visitor entrance where she entered a private vehicle.
== END 2019-07-05 13:30 | disposition home or self-care (01) | DRG 872 ==
LOC: COL.ER 05:17 → MEDICAL 07:58
PROVIDERS: Emergency Medicine; Nurse Practitioner Family; Physician Assistant; ADMIT Student in an Organized Health Care Education/Training Program
DX: A41.9 Sepsis, unspecified organism (principal); N17.9 Acute kidney failure, unspecified; K80.20 Calculus of gallbladder without cholecystitis without obstruction; I25.10 Atherosclerotic heart disease of native coronary artery without angina pectoris; I25.5 Ischemic cardiomyopathy; I10 Essential (primary) hypertension; E11.65 Type 2 diabetes mellitus with hyperglycemia; R73.9 Hyperglycemia, unspecified; E78.5 Hyperlipidemia, unspecified; I34.0 Nonrheumatic mitral (valve) insufficiency; D64.9 Anemia, unspecified; F41.9 Anxiety disorder, unspecified; F32.9 Major depressive disorder, single episode, unspecified; R00.0 Tachycardia, unspecified; I25.2 Old myocardial infarction; N95.0 Postmenopausal bleeding; R79.89 Other specified abnormal findings of blood chemistry; Z79.4 Long term (current) use of insulin; Z79.82 Long term (current) use of aspirin; Z79.891 Long term (current) use of opiate analgesic; Z95.5 Presence of coronary angioplasty implant and graft; Z87.891 Personal history of nicotine dependence
CPT/HCPCS: 99222-AI; 99232-AI; 99239; J1170; J1815; J2270; J2543; J3010; J7030; Q9967

== ENCOUNTER → 2019-09-26 | Outpatient (CLI) | payer MEDICAID ==
[~2019-09-26] MED LIST changes: +CIPRO 500MG TA500 MG PO; +CLEOCIN HCL300 MG PO; +COREG12.5 MG PO; +CORLANOR5 MG PO; +CYMBALTA 30MG30 MG PO; +FLAGYL500 MG PO; -IMDUR 60MG60 MG/TAB PO; +ULTRAM 50MG TAB50 MG PO
== END ==
LOC: MHCPAIN 13:44
DX: M47.817 Spondylosis without myelopathy or radiculopathy, lumbosacral region (principal); M53.3 Sacrococcygeal disorders, not elsewhere classified; M54.5 Low back pain; G89.29 Other chronic pain
CPT/HCPCS: G0463

== ENCOUNTER → 2019-10-17 | Outpatient (CLI) | payer MEDICAID | LOC: MHCPAIN 15:37 | DX: M47.817 Spondylosis without myelopathy or radiculopathy, lumbosacral region (principal); M54.5 Low back pain; M53.3 Sacrococcygeal disorders, not elsewhere classified; G89.29 Other chronic pain | CPT/HCPCS: G0463 ==

== ENCOUNTER → 2019-11-14 | Outpatient (CLI) | payer MEDICAID | LOC: MHCPAIN 15:30 | DX: M47.817 Spondylosis without myelopathy or radiculopathy, lumbosacral region (principal); M54.5 Low back pain; M53.3 Sacrococcygeal disorders, not elsewhere classified; G89.29 Other chronic pain; E11.9 Type 2 diabetes mellitus without complications; Z79.4 Long term (current) use of insulin | CPT/HCPCS: G0463 ==

== ENCOUNTER → 2019-12-18 | Emergency (ER) | payer MEDICAID | LOC: COL.ER 12:48 | DX: R69 Illness, unspecified (principal); Z53.21 Procedure and treatment not carried out due to patient leaving prior to being seen by health care provider ==

== ENCOUNTER 2019-12-23 16:31 | Emergency (ER) | payer MEDICAID ==
[2019-12-23 16:31] VITALS: TEMP 98.5
[2019-12-23 16:51] LABS: BASO # 0.1 (0.0-0.2); BASO % 0.4 % (0.0-2.0); EOS % 0.3 % (0-4.0); GRAN # 10.4 (1.4-6.5); GRAN % 76.8 % (42.2-75.2); HEMATOCRIT 38.7 % (37.0-47.0); HEMOGLOBIN 13.1 g/dl (12.5-16.0); LYMPH # 1.7 (1.2-3.4); LYMPH % 12.6 % (20.0-51.0); MEAN CELL VOLUME 85 fl (80.0-100.0); MEAN CORPUSCULAR HEMOGLOBIN 29 pg (27.0-31.0); MEAN CORPUSCULAR HGB CONC 34 g/dl (33.0-37.0); MEAN PLATELET VOLUME 10.4 fl (7.4-10.4); MONO # 1.3 (0.1-0.6); MONO % 9.2 % (1.7-9.3); PLATELET COUNT 265 K/mm3 (130-400); RED BLOOD COUNT 4.58 M/mm3 (4.10-5.30); REDCELL DISTRIBUTION WIDTH-CV 13.2 % (11.5-14.5)
[2019-12-23 16:52] LABS: INR 1.1 (0.8-3.0); PROTHROMBIN TIME 11.9 SECONDS (9.7-12.8)
[2019-12-23 16:59] LABS: ACETONE,SERUM NEGATIVE; ALANINE AMINOTRANSFERASE 48 U/L (4-34); ALBUMIN 3.9 gm/dL (3.5-5.0); ALKALINE PHOSPHATASE 218 U/L (50-136); ANION GAP 12 mmol/L (7-16); AST,SGOT 52 U/L (15-37); BILIRUBIN,TOTAL 0.9 mg/dL (0.0-1.0); BLOOD UREA NITROGEN 14 mg/dL (7-17); CALCIUM 9.4 mg/dL (8.4-10.2); CARBON DIOXIDE 29 mmol/L (22-30); CHLORIDE 94 mmol/L (98-107); CREATINE KINASE 71 U/L (30-135); CREATININE, serum 1.15 (0.52-1.25); GLUCOSE 343 mg/dL (74-106); LIPASE 41 U/L (23-300); POTASSIUM 3.3 mmol/L (3.4-5.0); SODIUM 134 mmol/L (137-145); TOTAL PROTEIN 7.6 gm/dL (6.4-8.2)
[2019-12-23 17:08] LABS: TROPONIN-I 0.035 ng/mL (0.000-0.035)
[2019-12-23 17:26] LABS: C-REACTIVE PROTEIN 46.6 mg/dL (0.0-0.9)
[2019-12-23 19:15] VITALS: BP 105/49; PULSE 102
[2019-12-23 19:31] LABS: COLLECTION METHOD CLEAN CATCH
[2019-12-23 19:40] LABS: PH 6 (5-8); SQUAMOUS EPITHELIAL 0-2 /hpf; URINE APPEARANCE Clear; URINE BACTERIA Rare /hpf; URINE BILIRUBIN Negative (NEGATIVE); URINE BLOOD 1+ (NEGATIVE); URINE COLOR Yellow; URINE GLUCOSE 3+ (NEGATIVE); URINE KETONE Negative (NEGATIVE); URINE LEUKOCYTE ESTERASE Negative (NEGATIVE); URINE NITRATE Negative (NEGATIVE); URINE PROTEIN(semi-quant) 1+ (NEGATIVE); URINE RBC 0-2 /hpf; URINE UROBILINOGEN Negative (NEGATIVE)
== END 2019-12-23 19:40 | disposition short-term general hospital (02) ==
LOC: COL.ER 16:31
PROVIDERS: Emergency Medicine
DX: K75.0 Abscess of liver (principal); K81.9 Cholecystitis, unspecified; E78.5 Hyperlipidemia, unspecified; F32.9 Major depressive disorder, single episode, unspecified; E11.9 Type 2 diabetes mellitus without complications; I25.10 Atherosclerotic heart disease of native coronary artery without angina pectoris; I25.2 Old myocardial infarction; Z79.891 Long term (current) use of opiate analgesic; Z95.5 Presence of coronary angioplasty implant and graft; Z87.891 Personal history of nicotine dependence; Z79.4 Long term (current) use of insulin; Z86.79 Personal history of other diseases of the circulatory system; Z79.899 Other long term (current) drug therapy
CPT/HCPCS: J1170; J2060; J2405; J2543; J7030; Q9967

== ENCOUNTER 2020-01-07 23:38 | Emergency (ER) | payer MEDICAID ==
[~2020-01-07] VITALS: Ht 157.5 cm; Wt 102.7 kg
[2020-01-07 23:49] VITALS: TEMP 97.8
[2020-01-08 01:32] LABS: BASO # 0.1 (0.0-0.2); BASO % 1.1 % (0.0-2.0); EOS # 0.3 (0.0-0.7); EOS % 3.1 % (0-4.0); GRAN # 5.5 (1.4-6.5); GRAN % 52.9 % (42.2-75.2); HEMOGLOBIN 12.2 g/dl (12.5-16.0); LYMPH # 3.5 (1.2-3.4); LYMPH % 33.8 % (20.0-51.0); MEAN CELL VOLUME 88 fl (80.0-100.0); MEAN CORPUSCULAR HEMOGLOBIN 29 pg (27.0-31.0); MEAN CORPUSCULAR HGB CONC 33 g/dl (33.0-37.0); MEAN PLATELET VOLUME 9.3 fl (7.4-10.4); MONO # 0.9 (0.1-0.6); MONO % 8.3 % (1.7-9.3); PLATELET COUNT 312 K/mm3 (130-400); RED BLOOD COUNT 4.18 M/mm3 (4.10-5.30); REDCELL DISTRIBUTION WIDTH-CV 14.1 % (11.5-14.5)
[2020-01-08 01:33] LABS: HEMATOCRIT 36.9 % (37.0-47.0)
[2020-01-08 01:42] LABS: ALBUMIN 3.2 gm/dL (3.5-5.0); BILIRUBIN,TOTAL 0.4 mg/dL (0.0-1.0); CALCIUM 8.5 mg/dL (8.4-10.2); CREATININE, serum 1.15 (0.52-1.25); POTASSIUM 3.3 mmol/L (3.4-5.0); TOTAL PROTEIN 6.1 gm/dL (6.4-8.2)
[2020-01-08] MEDS ORDERED: NIZORAL CR 30GM TOP (02:52)
[2020-01-08 03:05] VITALS: BP 110/75; PULSE 75
== END 2020-01-08 03:10 | disposition home or self-care (01) ==
LOC: COL.ER 23:38
PROVIDERS: Emergency Medicine
DX: T82.898A Other specified complication of vascular prosthetic devices, implants and grafts, initial encounter (principal); R21 Rash and other nonspecific skin eruption; E11.9 Type 2 diabetes mellitus without complications; I11.0 Hypertensive heart disease with heart failure; I50.9 Heart failure, unspecified; F31.9 Bipolar disorder, unspecified; E78.5 Hyperlipidemia, unspecified; F41.9 Anxiety disorder, unspecified; I25.5 Ischemic cardiomyopathy; Z87.891 Personal history of nicotine dependence; Z79.4 Long term (current) use of insulin; Z79.82 Long term (current) use of aspirin
CPT/HCPCS: J2997

== ENCOUNTER → 2020-01-19 | Outpatient (CLI) | payer MEDICAID ==
[~2020-01-19] MED LIST changes: +NIZORAL CR 30GM TOP
[2020-01-19 17:40] LABS: BASO # 0.1 (0.0-0.2); EOS # 0.5 (0.0-0.7); EOS % 4.2 % (0-4.0); GRAN # 6.1 (1.4-6.5); HEMATOCRIT 39.8 % (37.0-47.0); HEMOGLOBIN 13.1 g/dl (12.5-16.0); LYMPH # 3.9 (1.2-3.4); LYMPH % 34.2 % (20.0-51.0); MEAN CELL VOLUME 88 fl (80.0-100.0); MEAN CORPUSCULAR HEMOGLOBIN 29 pg (27.0-31.0); MEAN CORPUSCULAR HGB CONC 33 g/dl (33.0-37.0); MEAN PLATELET VOLUME 10.5 fl (7.4-10.4); MONO # 0.8 (0.1-0.6); MONO % 7.2 % (1.7-9.3); PLATELET COUNT 278 K/mm3 (130-400); RED BLOOD COUNT 4.54 M/mm3 (4.10-5.30)
[2020-01-19 18:03] LABS: C-REACTIVE PROTEIN 0.9 mg/dL (0.0-0.9); CREATININE, serum 1.17 (0.52-1.25)
== END ==
LOC: COL.LAB 16:32
PROVIDERS: Nurse Practitioner
DX: K75.0 Abscess of liver (principal)

== ENCOUNTER → 2020-01-22 | Outpatient (CLI) | payer MEDICAID | LOC: MHCPAIN 15:06 | DX: M47.817 Spondylosis without myelopathy or radiculopathy, lumbosacral region (principal); M54.5 Low back pain; M53.3 Sacrococcygeal disorders, not elsewhere classified; G89.29 Other chronic pain | CPT/HCPCS: G0463 ==

== ENCOUNTER 2020-03-17 10:23 | Inpatient (IN) | payer MEDICAID ==
[~2020-03-17] VITALS: Ht 157.5 cm; Wt 103.4 kg
[2020-03-17 11:26] LABS: HEMOGLOBIN 11.9 g/dl (12.5-16.0); MEAN CELL VOLUME 85 fl (80.0-100.0); MEAN CORPUSCULAR HEMOGLOBIN 28 pg (27.0-31.0); MEAN CORPUSCULAR HGB CONC 33 g/dl (33.0-37.0); MEAN PLATELET VOLUME 9.9 fl (7.4-10.4); PLATELET COUNT 351 K/mm3 (130-400); RED BLOOD COUNT 4.28 M/mm3 (4.10-5.30)
[2020-03-17 11:28] LABS: HEMATOCRIT 36.4 % (37.0-47.0)
[2020-03-17 11:44] LABS: ALBUMIN 3.2 gm/dL (3.5-5.0); BILIRUBIN,TOTAL 1.4 mg/dL (0.0-1.0); CALCIUM 8.3 mg/dL (8.4-10.2); CREATININE, serum 1.26 (0.52-1.25); POTASSIUM 3.9 mmol/L (3.4-5.0); TOTAL PROTEIN 5.8 gm/dL (6.4-8.2)
[2020-03-17 12:11] LABS: BAND 57 % (0-10); LYMPHOCYTE 9 % (20.0-51.0); NEUTROPHILS 28 % (42.0-75.2); PLATELET ESTIMATE NORMAL (NORMAL)
[2020-03-17 12:19] LABS: C-REACTIVE PROTEIN 50.7 mg/dL (0.0-0.9)
[2020-03-17 13:03] LABS: COLLECTION METHOD CLEAN CATCH
[2020-03-17 13:09] LABS: MUCOUS Present /lpf; PH 6 (5-8); URINE APPEARANCE Hazy; URINE BACTERIA None Seen /hpf; URINE BILIRUBIN Negative (NEGATIVE); URINE BLOOD Negative (NEGATIVE); URINE COLOR Yellow; URINE GLUCOSE 3+ (NEGATIVE); URINE KETONE Negative (NEGATIVE); URINE LEUKOCYTE ESTERASE Negative (NEGATIVE); URINE NITRATE Negative (NEGATIVE); URINE PROTEIN(semi-quant) Negative (NEGATIVE); URINE RBC 0-2 /hpf; URINE UROBILINOGEN Negative (NEGATIVE)
[2020-03-17 16:48] VITALS: BP 122/48; PULSE 113; TEMP 100.1
[2020-03-17 19:36] VITALS: BP 154/88; PULSE 119; TEMP 101.5
--- NOTE | 2020-03-17 21:10 | NUR ---
Admission B completed and documented. Pt currently resting in bed. Alert and oriented x3. Pt reporting generalized pain. PRN morphine given per orders with relief from pain. INT to right AC CDI. Tele on. Allergies reviewed with pt. Unable to complete med rec at this time. Pt stating that she does not know what medications she takes at home and would like to verify with her . BG being treated per orders from STEPHON Chairez. PRN tylenol ordered and given for temp of 101.5. Pt denies any needs/concerns. Call light within reach. Bed alarm on. Will continue to monitor.
[2020-03-17 21:12] LABS: INR 1.4 (0.8-3.0); PROTHROMBIN TIME 16.1 SECONDS (9.7-12.8)
[2020-03-17 21:15] LABS: PARTIAL THROMBOPLASTIN TIME 28.4 SECONDS (26.0-37.0)
[2020-03-17 22:29] VITALS: PULSE 110; TEMP 98.7
[2020-03-18 00:21] VITALS: BP 130/70
[2020-03-18 00:47] LABS: CALCIUM 8.5 mg/dL (8.4-10.2); CREATININE, serum 1.01 (0.52-1.25); POTASSIUM 3.6 mmol/L (3.4-5.0)
[2020-03-18 04:21] LABS: ARTERIAL BLD GAS O2 SATURATION 94.2 % (92-100); ARTERIAL BLD GAS TCO2 CT 29.8; ARTERIAL BLOOD GAS BASE EXCESS 4.4 (-2-2); ARTERIAL BLOOD GAS HCO3 28.6 meq/L (22-26); ARTERIAL BLOOD GAS PCO2 40.9 mmHg (35-45); ARTERIAL BLOOD GAS PO2 65.2 mmHg (80-100); ARTERIAL BLOOD GAS pH 7.46 (7.35-7.45)
[2020-03-18 04:29] VITALS: BP 132/78; PULSE 104; TEMP 99.4
--- NOTE | 2020-03-18 04:29 | NUR ---
CALLED HUMAN RESOURCES COMPENSATION ANALYST TO VOICE CONCERNS ABOUT PATIENTS RESPIRATORY STATUS. WORK OF BREATHING HAS INCREASED, BUT PATIENT SAYS THIS IS HER BASELINE. ABG OBTAINED PO2 LOW BUT OTHER ANDERSON NORMAL VALUES. WILL CONTINUE WITH OXYGEN.
[2020-03-18 04:54] LABS: BASO % 0.3 % (0.0-2.0); EOS % 0.2 % (0-4.0); GRAN # 10.7 (1.4-6.5); GRAN % 85.4 % (42.2-75.2); HEMOGLOBIN 10.4 g/dl (12.5-16.0); LYMPH # 1.2 (1.2-3.4); LYMPH % 9.9 % (20.0-51.0); MEAN CELL VOLUME 86 fl (80.0-100.0); MEAN CORPUSCULAR HEMOGLOBIN 29 pg (27.0-31.0); MEAN CORPUSCULAR HGB CONC 34 g/dl (33.0-37.0); MEAN PLATELET VOLUME 9.7 fl (7.4-10.4); MONO # 0.4 (0.1-0.6); MONO % 3.3 % (1.7-9.3); PLATELET COUNT 334 K/mm3 (130-400); RED BLOOD COUNT 3.61 M/mm3 (4.10-5.30); REDCELL DISTRIBUTION WIDTH-CV 13.1 % (11.5-14.5)
[2020-03-18 04:59] LABS: HEMATOCRIT 30.9 % (37.0-47.0)
[2020-03-18 05:02] LABS: ALBUMIN 2.9 gm/dL (3.5-5.0); BILIRUBIN,TOTAL 0.8 mg/dL (0.0-1.0); CALCIUM 8.2 mg/dL (8.4-10.2); CREATININE, serum 0.94 (0.52-1.25); POTASSIUM 3.6 mmol/L (3.4-5.0); TOTAL PROTEIN 5.5 gm/dL (6.4-8.2)
--- NOTE | 2020-03-18 05:32 | NUR ---
Pt has been awake most of the night. Pt requested to have come and get her multiple times overnight so he could take care of her. Explained to pt throughout the night that she is sick and it would not be in her best decision to leave AMA. Pt would hold phone up to staff and say "here use the phone and call my . I know his number." Pt has been intermittently tearful and anxious throughout the night. STEPHON Chairez updated overnight with pt status. Insulin, PRN tylenol and ativan given per orders from STEPHON Chairez. Fluids and heparin gtt infusing per orders to right AC IV site. Tele on. Pt denies any needs/concerns. Call light within reach. Bed alarm on. Will continue to monitor.
[2020-03-18 08:22] VITALS: BP 128/90; PULSE 126; TEMP 99.5
--- NOTE | 2020-03-18 09:28 | NUR ---
The patient is a COVID-19 PUI. Test pending. Grinding Wheel Inspector attempted to contact the patient at # to complete initial intake, her life partner Haider Mobley answered the call. SAROJ completed intak with Haider. The patient lives in [place] with Haider. The patient does not use DME to ambulate. The patient usually is independent and has home health services from [facility] twice a week. Haider report the patient may need bathing assistance when they visit. The patient has advanced directives in the EMR. It designates Haider and her two daughters. The discharge plan is to return home with continued [facility] services. SAROJ contacted Ewelina with [facility]. She confirmed that the patient does get Home & Community Based Services from them. They are not care home services. The patient has an home health aide for services such as, light housekeeping and bathing. SAROJ to faxed updates to Ewelina with [facility].
--- NOTE | 2020-03-18 10:07 | NUR ---
Pt assessment completed and charted, medications administered per jun. Pt A&O to self, situation, place, time. pt does have some confused conversation, very anxious, labored and tachypneic breathing upon entry. This nurse in pt room from [id number]. pt has difficulty describing pain or what is wrong but is very worked up and anxious. By the time this nurse left the room, pt breathing regular/unlabored, pt more calm. Pt has RAC IV 20G, NS and hep gtt running w/o issue. LS cta, Heart tachy but reg rhythm. BS active, pt denies N/V/D. Pusles strong bilaterally. Unable to draw lactic and hep labs, Nic from lab aware and will draw once pt back from CT. Pt ambulates well w/ 1 assist, fall risk d/t IV pole/tubing/pt impulsiveness. Fall risk precautions in place. Verbal order for one time dose solumedrol from Dr. Dupree ordered and given. No further needs at this time.
[2020-03-18 12:53] VITALS: BP 142/72; PULSE 99
[2020-03-18 16:31] VITALS: BP 126/81; PULSE 96; TEMP 97.9
--- NOTE | 2020-03-18 17:02 | NUR ---
Pt has been sleeping most of afternoon after CT. Pt eating some lunch, has refused most food, doesn't want to eat. RAC IV lost due to pt rolling around in bed a ton and continuously bending arm. Pt denies needs at this time and has been cooperative w/ cares. No further needs at this time. This nurse has called House about starting new IV. Hep gtt dc'd. Awaiting new IV and willc ontinue abx and IVF. VSS at this time. Pt satting mid to low 90s on room air.
[2020-03-18 19:16] VITALS: BP 134/90; PULSE 91; TEMP 98.1
--- NOTE | 2020-03-18 20:50 | NUR ---
Resting in bed. Assessment complete. Lungs clear. Heart sounds normal. Bowels active x4. Pulses present throughout. No edema noted. IV left hand infusing without complications. Denies needs. Denies pains. Call light in reach.
[2020-03-19 00:31] VITALS: BP 138/76; PULSE 83; TEMP 98.9
--- NOTE | 2020-03-19 00:45 | NUR ---
Reports 8/10 generalized pain. Provided with PRN oxycodone at this time. Denies other needs. Call light in reach.
[2020-03-19 04:06] VITALS: BP 122/72; PULSE 85; TEMP 97.9
--- NOTE | 2020-03-19 06:01 | NUR ---
Patient required x1 dose of oxycodone for pain control. Otherwise uneventful night. Resting in bed this AM. Call light in reach.
[2020-03-19 06:42] LABS: HEMOGLOBIN 10.4 g/dl (12.5-16.0); MEAN CELL VOLUME 84 fl (80.0-100.0); MEAN CORPUSCULAR HEMOGLOBIN 28 pg (27.0-31.0); MEAN CORPUSCULAR HGB CONC 34 g/dl (33.0-37.0); MEAN PLATELET VOLUME 9.7 fl (7.4-10.4); PLATELET COUNT 321 K/mm3 (130-400); RED BLOOD COUNT 3.66 M/mm3 (4.10-5.30); REDCELL DISTRIBUTION WIDTH-CV 13.1 % (11.5-14.5)
[2020-03-19 06:45] LABS: HEMATOCRIT 30.9 % (37.0-47.0)
[2020-03-19 06:51] LABS: ALBUMIN 3.2 gm/dL (3.5-5.0); BILIRUBIN,TOTAL 0.8 mg/dL (0.0-1.0); CALCIUM 8.5 mg/dL (8.4-10.2); CREATININE, serum 0.8 (0.52-1.25); POTASSIUM 3.9 mmol/L (3.4-5.0); TOTAL PROTEIN 6.2 gm/dL (6.4-8.2)
--- NOTE | 2020-03-19 07:00 | NUR ---
Report received from YUNIEL Wilcox. PT in bed resting with lights off, appears to be sleeping, will continue to monitor.
--- NOTE | 2020-03-19 07:08 | NUR ---
Report given to YUNIEL Landa
[2020-03-19 07:29] VITALS: BP 150/86; PULSE 90; TEMP 98.7
--- NOTE | 2020-03-19 09:00 | NUR ---
Assessment charted. Pt resting in bed, reluctant to have lights on but agreeable, states she feels as if she hasn't slept more than 20-30 minutes at a time all stay and is very tired. Requesting sleeping medicine, will address with doctors. ABD lap sites have some drainage. RH IV retaped since pt is very moist at baseline and moves around often in the bed. Pain is 6/10 to ABD, pain meds given as perscribed. Will continue to monitor.
[2020-03-19 12:10] VITALS: BP 134/69; PULSE 102; TEMP 97.8
--- NOTE | 2020-03-19 13:36 | NUR ---
Report given to YUNIEL Pat who will resume care.
[2020-03-19 16:34] VITALS: BP 151/89; PULSE 89; TEMP 97.7
--- NOTE | 2020-03-19 17:53 | NUR ---
Patient laying in bed, needing assistance with going to the bathroom and wanting her call light plugged back in. A&Ox3. VSS. IV CDI. Droplet/contact precautions in place. Denies pain and discomfort. No further needs expressed from the patient. Call light within reach. Bed alarm on
[2020-03-19 20:26] VITALS: BP 139/72; PULSE 87; TEMP 98.1
--- NOTE | 2020-03-19 21:00 | NUR ---
Patient assessed at this time. Alert and oriented x 4, and able to make needs known. Denies having pain and discomfort at this time. Updated patient that her COVID test was negative. Peripheral INT to right hand. Denies SOB and dyspnea. LS CTA. Respirations even and unlabored. HRR. Telemetry in place. Capillary refill less than 3 seconds. Non-tenting skin turgor. BSAx4. 4 lap sites to abdomen, steristrips in place with drainage. Denies any increase in drainage to sites. No edema. Voices no questions, needs, or concerns at this time. Resting in bed with call light within reach.
[2020-03-20 00:28] VITALS: BP 130/82; PULSE 85
--- NOTE | 2020-03-20 00:40 | NUR ---
Patient moved to room 310 at this time due to being covid negative. Patient complaining of back pain. Given PRN Roxicodone for pain as requested. Voices no further questions, needs, or concerns at this time. Resting in bed with call light within reach.
[2020-03-20 03:53] VITALS: BP 150/88; PULSE 82; TEMP 97.7
--- NOTE | 2020-03-20 05:03 | NUR ---
Patient has had no further complaints of pain or discomfort at this time. Sleepy, but awakens easily. High fall risk precautions in place. Resting in bed with call light within reach.
[2020-03-20 08:00] VITALS: BP 131/69; PULSE 85; TEMP 97.4
--- NOTE | 2020-03-20 08:30 | NUR ---
Patient laying in bed watching TV. A&Ox4. VSS. IV CDI. Patient reporting pain in neck scheduled pain medication given. Denies SOB and any other discomfort. No further needs expressed from the patient. Call light within reach
[2020-03-20] MEDS ORDERED: MONODOX100 PO (09:18)
[2020-03-20] MEDS ORDERED: RT Albuterol HFA MDI IH ×2 (09:19)
[2020-03-20] MEDS ORDERED: FLUTICASONE PROPIONATE IH (09:20)
[2020-03-20] MEDS ORDERED: SALMETEROL IH (09:20)
[2020-03-20] MEDS ORDERED: PREDNISONE20 MG PO (09:21)
[2020-03-20 12:29] VITALS: BP 153/76; PULSE 85; TEMP 97.9
[2020-03-20] MEDS ORDERED: PROTONIX 40MG T40 MG PO (12:50)
--- NOTE | 2020-03-20 13:50 | NUR ---
Discharge paperwork reviewed with the patient. Patient verbalized an understanding to follow doctors orders. IV removed, tip intact, gauze and coban applied. Personal belongings and discharge paperwork with the patient. Patient left in a hospital gown, did not have personal clothing. Nursing staff transfered patient by wheelchair to ER entrance where picked the patient up
--- NOTE | 2020-03-20 14:13 | NUR ---
SW informed that patient was discharging today. SW contacted [facility] of patient discharge. Patient did not recieve orders for services, but previously received services from this agency for housekeeping and bathing. Nothing further.
== END 2020-03-20 13:50 | disposition home or self-care (01) | DRG 190 ==
LOC: COL.ER 10:23 → MEDICAL 14:40 → SURG 14:40 → MEDICAL 17:42
PROVIDERS: Family Medicine; Nurse Practitioner Family; Physician Assistant; ADMIT Hospitalist
DX: J44.1 Chronic obstructive pulmonary disease with (acute) exacerbation (principal); J18.9 Pneumonia, unspecified organism; J44.0 Chronic obstructive pulmonary disease with (acute) lower respiratory infection; E11.65 Type 2 diabetes mellitus with hyperglycemia; E11.22 Type 2 diabetes mellitus with diabetic chronic kidney disease; I12.9 Hypertensive chronic kidney disease with stage 1 through stage 4 chronic kidney disease, or unspecified chronic kidney disease; I25.10 Atherosclerotic heart disease of native coronary artery without angina pectoris; D64.9 Anemia, unspecified; G89.29 Other chronic pain; F41.9 Anxiety disorder, unspecified; E78.5 Hyperlipidemia, unspecified; F31.9 Bipolar disorder, unspecified; Z20.828 Contact with and (suspected) exposure to other viral communicable diseases; K29.70 Gastritis, unspecified, without bleeding; N18.30 Chronic kidney disease, stage 3 unspecified; E11.40 Type 2 diabetes mellitus with diabetic neuropathy, unspecified; E66.01 Morbid (severe) obesity due to excess calories; I25.5 Ischemic cardiomyopathy; I25.2 Old myocardial infarction; Z79.4 Long term (current) use of insulin; Z95.818 Presence of other cardiac implants and grafts; Z79.82 Long term (current) use of aspirin; Z87.891 Personal history of nicotine dependence
CPT/HCPCS: 99233-AI; 99239; G0378; J0696; J1644; J1815; J2060; J2270; J2405; J2543; J2920; J2930; J7030; J7120; J7512; Q9967

== ENCOUNTER 2020-03-22 05:38 | Inpatient (IN) | payer MEDICAID ==
[2020-03-22] VITALS (13 sets, daily range): BP systolic 76–140; BP diastolic 40–88; PULSE 65–96; TEMP 97.7–98.5
[~2020-03-22] VITALS: Ht 157.5 cm; Wt 100.0 kg
[~2020-03-22 05:38] MED LIST changes: +FLUTICASONE PROPIONATE IH; +RT Albuterol HFA MDI IH; +SALMETEROL IH
[2020-03-22 06:06] LABS: HEMATOCRIT 37.3 % (37.0-47.0); HEMOGLOBIN 12.2 g/dl (12.5-16.0); MEAN CELL VOLUME 86 fl (80.0-100.0); MEAN CORPUSCULAR HEMOGLOBIN 28 pg (27.0-31.0); MEAN CORPUSCULAR HGB CONC 33 g/dl (33.0-37.0); MEAN PLATELET VOLUME 9.5 fl (7.4-10.4); PLATELET COUNT 363 K/mm3 (130-400); RED BLOOD COUNT 4.35 M/mm3 (4.10-5.30); REDCELL DISTRIBUTION WIDTH-CV 13.3 % (11.5-14.5)
[2020-03-22 06:24] LABS: ALBUMIN 3.4 gm/dL (3.5-5.0); CALCIUM 8.5 mg/dL (8.4-10.2); CREATININE, serum 0.89 (0.52-1.25); TOTAL PROTEIN 6.4 gm/dL (6.4-8.2)
[2020-03-22 06:36] LABS: TROPONIN-I 0.297 ng/mL (0.000-0.035)
[2020-03-22 06:47] LABS: BAND 4 % (0-10); LYMPHOCYTE 23 % (20.0-51.0); NEUTROPHILS 71 % (42.0-75.2); NUCLEATED RED BLOOD CELL 3 (0-6); PLATELET ESTIMATE NORMAL (NORMAL); POLYCHROMASIA 1+
[2020-03-22 06:48] LABS: ANISOCYTOSIS 1+
--- NOTE | 2020-03-22 12:00 | NUR ---
Patient up from ER. Drowsy but arouses to voice and touch. Potassium infusing per orders to left AC IV, Tele in place. patient oriented to room. Patient sleeps in between questions. Will continue to monitor.
--- NOTE | 2020-03-22 12:40 | NUR ---
Rechecked VS, BP remains 80's/40's. Notified Dr. Mendez, fluid bolus ordered and started.
--- NOTE | 2020-03-22 14:10 | NUR ---
Dr. Chavez in to see patient.
--- NOTE | 2020-03-22 15:18 | NUR ---
Contacted Dr. Mendez, re bipap order, concern for moving patient to PUI room. Per provider does not see reason for patient to be PUI d/t 3x negative covid test.
--- NOTE | 2020-03-22 15:44 | NUR ---
O2 SATS ON 3L PER NC AT 87%. ENCOURAGED PT TO DEEP BREATHE WITH NO CHANGE. O2 INCREASED TO 4L PER NC AND SATS IMPROVED TO 92% OVER APPROX 60 SECONDS.
--- NOTE | 2020-03-22 16:16 | NUR ---
Doubutaime drip initiated per protocol, [facility]. Secondary IV initiated to right forarm. Patient denies further needs at this time.
--- NOTE | 2020-03-22 19:00 | NUR ---
Patient has done well this afternoon, verified hold parameters with Dr. Mendez re BP, hold for HR >130. Patient drowsy but arouses to voice and touch. Reviewed dobutamine with Amanda BRICE. No further needs at this time. Reported off to founder ceo & president.
--- NOTE | 2020-03-22 19:48 | NUR ---
PT A/O X4. PT WAS ASSISTED TO BATHROOM WITHOUT OXYGEN BY ANOTHER NURSE, WENT INTO ROOM RIGHT AWAY. PT HAD A BOWEL MOVEMENT AND THEN ASSISTED BACK TO BED. INCREASED OXYGEN BACK UP TO 10L/OXYMASK. PT'S O2 SATS WENT BACK UP TO THE 90'S. PT ADVISED IF HAS TO BE INTIBATED CANNOT TOLORATED A TUBE NO BIGGER THAN A 5. WILL ADVISED RT ABOUT THIS WELL. PT VERY TALKATIVE AND COOPERATIVE. CALL LIGHT WITHIN REACH.
[2020-03-23] VITALS (21 sets, daily range): BP systolic 95–154; BP diastolic 54–85; PULSE 82–97; TEMP 97.2–98.8
[2020-03-23 07:06] LABS: MEAN CELL VOLUME 87 fl (80.0-100.0); MEAN CORPUSCULAR HEMOGLOBIN 28 pg (27.0-31.0); MEAN CORPUSCULAR HGB CONC 32 g/dl (33.0-37.0); PLATELET COUNT 354 K/mm3 (130-400); REDCELL DISTRIBUTION WIDTH-CV 13.8 % (11.5-14.5)
[2020-03-23 07:16] LABS: HEMATOCRIT 34.8 % (37.0-47.0)
[2020-03-23 07:27] LABS: CALCIUM 8.2 mg/dL (8.4-10.2); CREATININE, serum 0.94 (0.52-1.25); MAGNESIUM 1.7 mg/dL (1.6-2.3); POTASSIUM 4.3 mmol/L (3.4-5.0)
--- NOTE | 2020-03-23 07:33 | NUR ---
PT SLEPT WITH BPAP ON AND NO DIFFICULTIES. PT'S VITAL SIGNS WITHIN NORMAL LIMITS WITH OXYGEN ON. CALL LIGHT WITHIN REACH AND BED ALARM ON.
[2020-03-23 07:37] LABS: TROPONIN-I 0.13 ng/mL (0.000-0.035)
[2020-03-23 07:39] LABS: C-REACTIVE PROTEIN 26.6 mg/dL (0.0-0.9)
--- NOTE | 2020-03-23 07:45 | NUR ---
Patient laying in bed, A&Ox4. VSS dobutamine infusing IV 15ml/hr Q1 VS monitored. 4L NC O2, dyspnea reported at rest and with exertion. Nurse also encouraged patient to take deep breaths and to try and relax. Patient verbalized an understanding. Reports of pain in neck, scheduled pain medication given. No further needs expressed from the patient. Call light within reach
[2020-03-23 11:12] LABS: BAND 6 % (0-10); LYMPHOCYTE 15 % (20.0-51.0); NEUTROPHILS 75 % (42.0-75.2); PLATELET ESTIMATE NORMAL (NORMAL)
--- NOTE | 2020-03-23 12:33 | NUR ---
SW met with patient to complete intake. Patient provides that she lives at home with her Haider [phone]. Patient states that she does not utilize any walker or cane and is independent with ADL's. Patient states that PCP is Dr. Mitchell, pharmacy is [facility], and is able to afford her medications. Patient states that her is her DPOA-HC and states that she has the documenation at home. Patient states that she does not have any concerns about going home when that time comes just wants to be able to breath better. SW provided to patient she would talk to the nurse to access her O2 concerns. Nurse assisted. SW will continue to follow.
--- NOTE | 2020-03-23 12:38 | NUR ---
PT PLACED ON 6LPM/NC POST TX FOR DECREASED SATS
--- NOTE | 2020-03-23 15:00 | NUR ---
Patient refused IV lasix so that she could sleep. Nurse informed the patient that she would be back to give the IV lasix after the patient had a nap. No further needs expressed from the patient. Call light within reach
--- NOTE | 2020-03-23 18:36 | NUR ---
Patient A&Ox4. VSS, 6L high flow NC, reports of SOB at rest and with exertion. IV CDI, fluids infusing. Dobutamine drip 15ml/hr, patient tolerating well, BP WNL Q1 VS monitored. Reporting pain in neck and back, pain medication given when requested. No further needs expressed from the patient. Call light within reach
--- NOTE | 2020-03-23 21:30 | NUR ---
Pt assessment completed and documented. Pt alert and oriented x4. Complaints of 6/10 pain to her neck, back, legs and feet. PRN roxicodone and sheduled MS contin given per orders. IV ABX infusing per orders to left AC IV. Dobutamine infusing to right forearm per orders. Tele on. PT denies any needs/concerns. Call light within reach. Bed alarm on. Will continue to monitor
[2020-03-23 22:01] LABS: ARTERIAL BLD GAS O2 SATURATION 84.9 % (92-100); ARTERIAL BLD GAS TCO2 CT 27.7; ARTERIAL BLOOD GAS BASE EXCESS 4.8 (-2-2); ARTERIAL BLOOD GAS HCO3 26.7 meq/L (22-26); ARTERIAL BLOOD GAS PCO2 31.2 mmHg (35-45); ARTERIAL BLOOD GAS pH 7.55 (7.35-7.45)
[2020-03-23 22:02] LABS: ARTERIAL BLOOD GAS PO2 44.8 mmHg (80-100)
[2020-03-24] VITALS (14 sets, daily range): BP systolic 99–159; BP diastolic 41–103; PULSE 69–104; TEMP 97.6–98.6
[2020-03-24 05:52] LABS: ARTERIAL BLD GAS O2 SATURATION 97.2 % (92-100); ARTERIAL BLD GAS TCO2 CT 28.4; ARTERIAL BLOOD GAS BASE EXCESS 3.5 (-2-2); ARTERIAL BLOOD GAS HCO3 27.2 meq/L (22-26); ARTERIAL BLOOD GAS PCO2 38.2 mmHg (35-45); ARTERIAL BLOOD GAS PO2 93.4 mmHg (80-100); ARTERIAL BLOOD GAS pH 7.47 (7.35-7.45)
--- NOTE | 2020-03-24 06:00 | NUR ---
Pt rested well overnight. Pt on bipap all night with no complications. Dobutamine infusing per orders to right forearm IV. PRN pain medication given x1 overnight for reports of neck, back, leg and feet pain. No further reports of pain. Pt assisted to commode x1 one assist at this time. Pt denies any needs/concerns. Call light within reach. Bed alarm on.
--- NOTE | 2020-03-24 06:45 | NUR ---
Report given to YUNIEL Parada
--- NOTE | 2020-03-24 06:45 | NUR ---
appears to be sleeping, eyes closed, resp quiet and easy, bedside shift report received from YUNIEL Servin
[2020-03-24 07:12] LABS: HEMATOCRIT 33.9 % (37.0-47.0); HEMOGLOBIN 10.8 g/dl (12.5-16.0); MEAN CELL VOLUME 86 fl (80.0-100.0); MEAN CORPUSCULAR HEMOGLOBIN 28 pg (27.0-31.0); MEAN CORPUSCULAR HGB CONC 32 g/dl (33.0-37.0); MEAN PLATELET VOLUME 9.9 fl (7.4-10.4); PLATELET COUNT 339 K/mm3 (130-400); RED BLOOD COUNT 3.93 M/mm3 (4.10-5.30)
[2020-03-24 07:29] LABS: CALCIUM 8.4 mg/dL (8.4-10.2); CREATININE, serum 1.03 (0.52-1.25); POTASSIUM 3.9 mmol/L (3.4-5.0)
--- NOTE | 2020-03-24 08:00 | NUR ---
continues to sleep, awakened for vital signs and offered breakfast but she declines at this time, will let her sleep for now and awaken later
--- NOTE | 2020-03-24 09:00 | NUR ---
BIPAP alarm is sounding and tubing is disconnected from mask, O2 sat in the 60s, O2 placed on at 7L/NC and slow O2 sats up to low to mid 90s, will leave on at 7L at this time and continue to monitor, full assessment completed, see interventions for further info, only had small amount of breakfast, all am meds taken without difficulty, denies needs at this time
[2020-03-24 09:08] LABS: BAND 12 % (0-10); LYMPHOCYTE 13 % (20.0-51.0); METAMYELOCYTE 1 % (0-0); NEUTROPHILS 71 % (42.0-75.2); NUCLEATED RED BLOOD CELL 1 (0-6)
[2020-03-24 09:09] LABS: HYPOCHROMIA 2+; PLATELET ESTIMATE NORMAL (NORMAL)
[2020-03-24 09:13] LABS: BURR CELLS 1+
--- NOTE | 2020-03-24 09:55 | NUR ---
Spoke with RT taking care of patient. Patient has had a rough night and requiring BIPAP. Will try to complete Spirometry with bronchodilator tomorrow morning. Nazario Browne, COOKEE
--- NOTE | 2020-03-24 11:00 | NUR ---
occupational therapy in to work with patient, assisted her up to side of bed and with am hygiene including shampoo cap and combing her hair, up to bedside commode and voided 200ml clear yellow urine, then back to bed, O2 sats are mid 90s on 7L/NC and uses pursed lip breathing while up,
--- NOTE | 2020-03-24 12:04 | NUR ---
Dr Mendez was in and saw patient and spoke with Dr Goel regarding her assistance
--- NOTE | 2020-03-24 13:20 | NUR ---
Dr Goel in to see patient
--- NOTE | 2020-03-24 14:00 | NUR ---
appears to be sleeping, in bed with eyes closed, resp quiet and easy, some maoning in her sleep, awakens easily and po meds taken
--- NOTE | 2020-03-24 14:44 | NUR ---
assisted up to bedside commode and voided large amount
--- NOTE | 2020-03-24 15:00 | NUR ---
dietitian in to talk with patient, medicated with roxicodone 2.5mg po for c/o paina
--- NOTE | 2020-03-24 15:24 | NUR ---
Data Management Consultant met with patient to discuss post acute rehab. Patient became tearful and states she just wants to get home but understands why this is being recommended. Patient states she just really misses her and dog. SW discussed options with patient and advised that SNF would not be a good option as patient only has Medicaid coverage. SW advised referrals would be sent to out of town swing bed facilities and inpatient rehab facilities and patient verbalized understanding. Patient states her first preference would be [facility] if able. SW contacted patient's , Haider to provide update. SAROJ contacted Marcia, Operator Maintainer to give referral. After review, Marcia states they can accept once patient's oxygen requirements are down to 2-3 liters. At this time, patient is requiring 7 liters. SAROJ also contacted and faxed referrals to [facility] and [facility] ([place]). SAROJ will continue to follow.
--- NOTE | 2020-03-24 16:14 | NUR ---
up to bedside commode, has been sleeping and states relief of roxicodone given earlier
--- NOTE | 2020-03-24 21:00 | NUR ---
Initial shift assessment done- states pain "all over" 11/01,, will give give Roxicodone as ordered, o2 sats 86-87 on the 6L/nc-- respiratory therapy here , will put pt on Bipap as ordered. Blood sugar 69- did drink some soda,,did not want any other snack, Meli CERVANTES was notified and will hold long acting insulin tonight- Tele on.
[2020-03-25] VITALS (7 sets, daily range): BP systolic 105–130; BP diastolic 49–98; PULSE 72–95; TEMP 97.6–98.3
[2020-03-25 05:52] LABS: HEMOGLOBIN 10.8 g/dl (12.5-16.0); MEAN CELL VOLUME 86 fl (80.0-100.0); MEAN CORPUSCULAR HEMOGLOBIN 28 pg (27.0-31.0); MEAN CORPUSCULAR HGB CONC 32 g/dl (33.0-37.0); MEAN PLATELET VOLUME 9.5 fl (7.4-10.4); PLATELET COUNT 351 K/mm3 (130-400); RED BLOOD COUNT 3.89 M/mm3 (4.10-5.30); REDCELL DISTRIBUTION WIDTH-CV 14.3 % (11.5-14.5)
[2020-03-25 05:54] LABS: HEMATOCRIT 33.6 % (37.0-47.0)
[2020-03-25 06:01] LABS: CALCIUM 8.1 mg/dL (8.4-10.2); CREATININE, serum 1.2 (0.52-1.25); MAGNESIUM 1.7 mg/dL (1.6-2.3); POTASSIUM 4.2 mmol/L (3.4-5.0)
--- NOTE | 2020-03-25 06:06 | NUR ---
Did rest most of the night- did wear Bipap for about 1/2 the night,, now on o2 at 7L/nc with sat of 90%- pt in good spirits this am- pleasant, was given roxicodone per order for pain 'all over'
[2020-03-25 06:23] LABS: BAND 6 % (0-10); LYMPHOCYTE 21 % (20.0-51.0); NEUTROPHILS 67 % (42.0-75.2); PLATELET ESTIMATE NORMAL (NORMAL)
--- NOTE | 2020-03-25 12:50 | NUR ---
Bell Staff spoke with Lachelle at [facility] who continues to work up referral. The highest oxygen they can take is 6 liters and patient is currently on 10.
--- NOTE | 2020-03-25 18:09 | NUR ---
Patient affect is pleasant, requires 10L O2 HF @90%. Patient have increase work of breathing when talking or ambulating. Generalized pain managed with Roxycodone and Morphine sulfate er. Patient resting in bed at this time.
--- NOTE | 2020-03-25 21:30 | NUR ---
Alert and oriented x 4, and able to make needs known. Reported all over general pain. Received scheduled MS Contin per orders. Peripheral INT to right forearm. Zosyn started per orders. Site without redness, warmth, swelling, and pain. On oxygen at 6 L/min via NC. Denies SOB and dyspnea at this time. Assisted to bedside commode. Denied having increased SOB and dyspnea with exertion. HRR. Telemetry in place. Capillary refill less than 3 seconds. Non-tenting skin turgor. BSAx4. No BM. Awaiting stool sample per orders. Urine clear and yellow. No edema. Voices no questions, needs, or concerns at this time. Not ready for BIPAP at this time. Resting in bed with call light within reach.
[2020-03-26] VITALS (9 sets, daily range): BP systolic 88–145; BP diastolic 39–88; PULSE 69–169; TEMP 97.7–98.3
--- NOTE | 2020-03-26 06:14 | NUR ---
Patient has been resting in bed with call light within reach. Received PRN Roxicodone for pain as requested this morning. Patient wore BIPAP for most of the night. Was on oxygen at 10 L/min via NC when not on BIPAP. Assisted to bedside commode a few times. No bowel movement this shift. Still needing stool sample. Voices no questions, needs, or concerns at this time. Encouraged to call for any assistance.
[2020-03-26 09:54] LABS: HEMATOCRIT 34.8 % (37.0-47.0); HEMOGLOBIN 11.2 g/dl (12.5-16.0); MEAN CELL VOLUME 86 fl (80.0-100.0); MEAN CORPUSCULAR HEMOGLOBIN 28 pg (27.0-31.0); MEAN CORPUSCULAR HGB CONC 32 g/dl (33.0-37.0); MEAN PLATELET VOLUME 9.7 fl (7.4-10.4); PLATELET COUNT 311 K/mm3 (130-400); RED BLOOD COUNT 4.03 M/mm3 (4.10-5.30); REDCELL DISTRIBUTION WIDTH-CV 13.9 % (11.5-14.5)
[2020-03-26 09:56] LABS: CALCIUM 8.3 mg/dL (8.4-10.2); CREATININE, serum 1.17 (0.52-1.25); POTASSIUM 4.8 mmol/L (3.4-5.0)
[2020-03-26 10:14] LABS: BAND 2 % (0-10); LYMPHOCYTE 16 % (20.0-51.0); METAMYELOCYTE 1 % (0-0); NEUTROPHILS 77 % (42.0-75.2); PLATELET ESTIMATE NORMAL (NORMAL)
--- NOTE | 2020-03-26 13:00 | NUR ---
Pt assessment completed and charted. Medications administered per jun. pt A&O, 1 assist in room, on 10L HFNC. Pt satting low 90s, slightly tachpneic. Pt states she has a slight cough, unable to produce phlegm. pt has RFA INT IV that flushes w/o issues. Pt has chronic pain, receiving scheduled meds and PRN pain medication. Pt denies needs at this time.
--- NOTE | 2020-03-26 16:13 | NUR ---
Licensed Prosthetist attended clinical rounds with the team and Hospitalist advised that if patient's oxygen can not be weened down, patient may require LTACH referral as post acute placements will not be able to accept if patient is on 10 liters. SAROJ met with patient about this and she is agreeable to have referral sent to [facility] in [place]. Patient expressed concern about her , Haider at home and states his sugars have been off. SAROJ contacted patient's , Haider who advised he was doing fine and has an appointment with his primary care physician next week. Haider states he has also been talking with his pcp's nurse about his sugars. SAROJ updated Haider on discharge planning and advised that referral will be sent to [facility] in [place]. SAROJ contacted Jericho at [facility] and faxed referral.
--- NOTE | 2020-03-26 16:58 | NUR ---
This nurse in to take pt vitals. Pt laying in bed, A&O. Pt stated she needed to use bathroom after vitals were taken. Pt has been using bedside commode, 1 assist throughout day. Pt to EOB and then 1 assist to bedside commode. Pt was on commode for approx 1 min and began to rock back and forth. pt then fell forward off of commode to knees and hands. VS obtained, stable. Pt denies any pain, repeatedly apologized. Pt states she was trying to get up. Pt didn't verbalize that she was ready to get up, pt wasn't on commode for more than a couple of min. Once back in bed and VS obtained, pt stated that she "thinks she passed out". No injuries reported. Pt back to bed, placed on fall precautions. Pt was low fall risk prior. Event report completed.
--- NOTE | 2020-03-26 19:35 | NUR ---
Patient assessed at this time. Alert and oriented, and able to make needs known. Reports chronic pain, all over. Given scheduled MS Contin. Peripheral INT to right forearm. Reports SOB and dyspnea with exertion. On oxygen at 9 L/min via high flow nasal canula at this time. HRR. Telemetry in place. Capillary refill less than 3 seconds. Non-tenting skin turgor. BSAx4. Abdomen soft and non-tender. No edema. Voices no questions, needs, or concerns at this time. Resting in bed with call light within reach. High fall risk precautions in place. Call light within reach.
--- NOTE | 2020-03-26 21:28 | NUR ---
Patient assisted to bathroom. Did get dizzy. Encouraged to change positions slowly. Afterwards short of breath. Stated she was ready for bed and encouraged BIPAP, which patient stated she would wear. Patient put on BIPAP. This nurse called [facility] and notified them that BIPAP was on at this time. Voices no further questions, needs, or concerns at this time. Resting in bed with call light within reach.
--- NOTE | 2020-03-26 23:35 | NUR ---
Patient assisted to bedside commode. Very dizzy while sitting on commode, but no fall or syncope. Patient did complain of pain to back, level 7. Given PRN Roxicodone as requested for pain.
[2020-03-27] VITALS (7 sets, daily range): BP systolic 89–124; BP diastolic 51–79; PULSE 78–102; TEMP 97–98.5
--- NOTE | 2020-03-27 04:55 | NUR ---
Patient given PRN APAP per orders as requested for pain.
--- NOTE | 2020-03-27 05:42 | NUR ---
Patient has been calling for assistance this shift. Has been wearing BIPAP most of shift, but does wear oxygen at 9 L/min via high flow nasal canula when BIPAP is not on. Given PRN Roxicodone and PRN APAP once each this shift for pain as requested. Voices no further questions, needs, or concerns at this time. Resting in bed with call light within reach.
[2020-03-27 06:29] LABS: HEMOGLOBIN 11.7 g/dl (12.5-16.0); MEAN CELL VOLUME 87 fl (80.0-100.0); MEAN CORPUSCULAR HEMOGLOBIN 28 pg (27.0-31.0); MEAN CORPUSCULAR HGB CONC 32 g/dl (33.0-37.0); MEAN PLATELET VOLUME 9.8 fl (7.4-10.4); PLATELET COUNT 327 K/mm3 (130-400); RED BLOOD COUNT 4.17 M/mm3 (4.10-5.30); REDCELL DISTRIBUTION WIDTH-CV 14.1 % (11.5-14.5)
[2020-03-27 06:44] LABS: CALCIUM 8.3 mg/dL (8.4-10.2); CREATININE, serum 1.64 (0.52-1.25); POTASSIUM 3.9 mmol/L (3.4-5.0)
[2020-03-27 06:45] LABS: HEMATOCRIT 36.3 % (37.0-47.0)
[2020-03-27 09:05] LABS: BAND 4 % (0-10); EOSINOPHIL 2 % (0-4); NEUTROPHILS 63 % (42.0-75.2); PLATELET ESTIMATE NORMAL (NORMAL)
[2020-03-27 09:06] LABS: LYMPHOCYTE 26 % (20.0-51.0)
--- NOTE | 2020-03-27 09:57 | NUR ---
ABLE TO WEAN O2 FROM 9 TO 6 LPM ON HIFLO OXYGEN. WILL CONTINUE TO CHECK
--- NOTE | 2020-03-27 11:14 | NUR ---
Patient very drowsy and lethargic at 0745. Open eyes briefly to verbal and tactile stimuli and go back to sleep. BS 97 at 0745 am. Patient fully awake around 0830. Patient alert and oriented x4. Assisted patient to use bedside commode. Patient is weak and needed 1-2 person assist. Stool sample collected at this time. Scheduled morning meds given per MD order. Novolog hold this morning for BS 97. Patient denies any pain or discomfort. Denies SOB or dyspnea while at rest. Noticed SOB during transfer to bedside commode. Encourage rest and pace activities. Patient ate 50% of breakfast. Offered ice tea per patient request. Patient denies further need at this time.
--- NOTE | 2020-03-27 15:26 | NUR ---
Derrick Boat Runner contacted Jericho at [facility] who advised patient would likely qualify and would be appropriate, however they do not have a bed at this time. Jericho to follow and will notify SAROJ once bed is available. SAROJ faxed clinical updates to [facility] and to [facility]. SAROJ spoke with Lachelle at [facility] who advised they are following referral, however would need patient to be down to 6 liters of oxygen or less. SAROJ also contacted Marcia at [facility] and left a message updating her on patient, who is still currently on 9 liters. SAROJ will continue to follow.
--- NOTE | 2020-03-27 15:27 | NUR ---
Due to patient already ate lunch already, so unable to do abdominal ultrasound today. Contacted HELEN Brito. Per Alisha, it is ok to do abdominal ultrasond tomorrow. Called Dr. Eliud Gallego's office and let the nurse in the office to take message regarding patient CT scan result of possible abscess and her recent gall bladder removal on 03/14/20.
--- NOTE | 2020-03-27 15:30 | NUR ---
BIPAP APPLIED AT THIS TIME. 06/12, 60% FI02, SP02 96%. PATIENT WAS 85% ON 10LPM ON HIFLOW. WILL CONTIN U TO MONITOR.
--- NOTE | 2020-03-27 19:30 | NUR ---
Patient assessed at this time. Alert and oriented x 4, and able to make needs known. Peripheral INT to right forearm flushed. Site without redness, warmth, swelling, and pain. Denies having SOB and dyspne at rest, does with exertion. Currently on BIPAP. LS CTA in upper lobes, diminished in lower lobes. Respriations even and unlabored. HRR. Telemetry in place. Capillary refill less than 3 seconds. Non-tenting skin turgor. BSAx4. Abdomen soft and non-tender. No edema. Voices no questions, needs, or concerns at this time. Resting in bed with call light within reach.
[2020-03-28] VITALS (13 sets, daily range): BP systolic 87–135; BP diastolic 51–119; PULSE 69–91; TEMP 97.5–98.6
--- NOTE | 2020-03-28 05:10 | NUR ---
Patient has been resting in bed with call light within reach this shift. Has been wearing BIPAP most of the night, and wearing oxygen at 9 L/min via high flow nasal cannula when she is not. Voices no questions, needs, or concerns at this time.
[2020-03-28 07:32] LABS: HEMOGLOBIN 11.7 g/dl (12.5-16.0); MEAN CELL VOLUME 87 fl (80.0-100.0); MEAN CORPUSCULAR HEMOGLOBIN 28 pg (27.0-31.0); MEAN CORPUSCULAR HGB CONC 32 g/dl (33.0-37.0); MEAN PLATELET VOLUME 9.6 fl (7.4-10.4); PLATELET COUNT 328 K/mm3 (130-400); RED BLOOD COUNT 4.14 M/mm3 (4.10-5.30); REDCELL DISTRIBUTION WIDTH-CV 14.1 % (11.5-14.5)
[2020-03-28 07:36] LABS: CALCIUM 8.5 mg/dL (8.4-10.2); CREATININE, serum 1.15 (0.52-1.25); HEMATOCRIT 36.1 % (37.0-47.0); POTASSIUM 4.6 mmol/L (3.4-5.0)
[2020-03-28 08:04] LABS: BAND 2 % (0-10); EOSINOPHIL 1 % (0-4); LYMPHOCYTE 14 % (20.0-51.0); NEUTROPHILS 79 % (42.0-75.2); PLATELET ESTIMATE NORMAL (NORMAL)
--- NOTE | 2020-03-28 08:41 | NUR ---
Pt seen, laying in bed, eating breakfast after Abd US. Pt c/o pain, general aching all over and "feeling stiff". Pt tearful. PRN jarad given per mindy. Pt denies other needs at this time. Call light within reach.
[2020-03-28 11:48] LABS: BILIRUBIN UNCONJUGATED 0.3 mg/dL (0.0-1.1); BILIRUBIN,DIRECT 0.2 mg/dL (0.0-0.4); BILIRUBIN,TOTAL 0.5 mg/dL (0.0-1.0); TOTAL PROTEIN 6.2 gm/dL (6.4-8.2)
--- NOTE | 2020-03-28 13:08 | NUR ---
Sammie notified for PICC placement order, PICC placed, no issues noted. Pt to have abd/pelvis CT, possible drainage for abcess. Consent signed. [facility] consult placed. All qquestions answered.
--- NOTE | 2020-03-28 13:31 | NUR ---
Patient still currently on 10 liters. SW attended clinical rounds and patient to have CT of abdomen today. SAROJ contacted Jericho at [facility] to provide update. [facility] does not have bed availability at this time but requested updates Tuesday to re-evaluate. [facility] cannot accept at this time with patient's current oxygen requirements.
--- NOTE | 2020-03-28 14:46 | NUR ---
1407 1MG VERSED AND 50 MCG FENTANYL GIVEN SLOW IVP THROUGH PURPLE PORT OF PICC
--- NOTE | 2020-03-28 14:48 | NUR ---
REPORT CALLED TO ERIC BRICE REGARDING ABCESS DRAIN ON PT. VERSED 1 MG AND 50 MCG FENTANYL GIVEN SIVP AT 1407. APPROXIMATELY 120CC BLOODY/BROWN FLUID REMOVED FROM PT. LAB SPECIMEN SENT TO LAB
--- NOTE | 2020-03-28 16:42 | NUR ---
Pt back from CT and drain palcement for abcess. Brown bloody fluid draining, site is CDI, pt denies "pain" states she has some discomfort, rating it 5/10. Pt assisted to bedside commode, no issues. Abx started per orders. Benadryl administered prior to Vanc. No further needs at this time.
--- NOTE | 2020-03-28 18:14 | NUR ---
Pt ate very late lunch after PICC placement and abcess drain placement. No issues noted. Vanc running w/o issues. Pt then ate some ice cream from dinner tray but no dinner. Meals/snacks were back to back. Pt received 10 units Novolog just prior to checking BS, resulted in 314. Will recheck this evening, w/ plant maintenance manager. Pt requesting pain medication. jarad PRN administered per jun. Drain in place, no issues.
--- NOTE | 2020-03-28 19:30 | NUR ---
Patient assessed at this time. Alert and oriented x 4, and able to make needs known. Reported pain to abdomen where drain is in place. Given scheduled MS contin per orders. Double lumen PICC to ZUHAIR. Reports SOB and dyspnea on exertion. Denies at rest. Currenty on BIPAP. LS CTA . Respirations even and unlabored. HRR. Telemetry in place. Capillary refill less than 3 seconds. Non-tentng skin turgor. BSAx4. Abdomen soft and non-tender. Drain to abdomen in place. No edema. Voices no questions, needs, or concerns at this time. Resting in bed with call light within reach.
[2020-03-29] VITALS (7 sets, daily range): BP systolic 100–139; BP diastolic 47–87; PULSE 90–97; TEMP 97.6–98.8
--- NOTE | 2020-03-29 00:35 | NUR ---
Given PRN Roxicodone as requesteed for pain to abdomen.
--- NOTE | 2020-03-29 06:00 | NUR ---
Patient has been resting in bed with call light within reach. Seems more tired tonight. Has taken BIPAP off a few times during the night, but desats on the 10 L/min via high flow nasal canula. Put BIPAP on and improves. Drain to abdomen. Voices no questions, needs, or concerns at this time. Has been having increased pain to abdomen and has received PRN Roxicodone and APAP this shift.
[2020-03-29 06:31] LABS: BASO % 0.2 % (0.0-2.0); EOS # 0.1 (0.0-0.7); EOS % 0.6 % (0-4.0); GRAN # 12.7 (1.4-6.5); GRAN % 82.2 % (42.2-75.2); HEMOGLOBIN 10.9 g/dl (12.5-16.0); LYMPH # 1.7 (1.2-3.4); LYMPH % 10.9 % (20.0-51.0); MEAN CELL VOLUME 88 fl (80.0-100.0); MEAN CORPUSCULAR HEMOGLOBIN 28 pg (27.0-31.0); MEAN CORPUSCULAR HGB CONC 31 g/dl (33.0-37.0); MEAN PLATELET VOLUME 9.7 fl (7.4-10.4); MONO # 0.6 (0.1-0.6); MONO % 4.1 % (1.7-9.3); PLATELET COUNT 347 K/mm3 (130-400); RED BLOOD COUNT 3.97 M/mm3 (4.10-5.30)
[2020-03-29 06:41] LABS: HEMATOCRIT 34.8 % (37.0-47.0)
[2020-03-29 06:43] LABS: ALBUMIN 2.8 gm/dL (3.5-5.0); BILIRUBIN,TOTAL 0.5 mg/dL (0.0-1.0); CALCIUM 8.7 mg/dL (8.4-10.2); CREATININE, serum 1.08 (0.52-1.25)
--- NOTE | 2020-03-29 11:41 | NUR ---
Pt sleeping at shift change this morning, pt woke up to eat breakfast and then went back to sleep. pt has been sleeping and very tired this morning. unable to give morning medications at this time. Pt BS 78 before eating, no insulin given at that time. Pt appears more sleepy than last few days. RUQ percutaneous abcess drain in place, no issues noted.
--- NOTE | 2020-03-29 12:19 | NUR ---
Pt sleeping, placed back on 10L NC after breathing treatment. Pt satting around 80% on 10L. Pt then placed back on bipap. Dr. Brothers in to visit w/ patient.
[2020-03-29 18:48] LABS: ARTERIAL BLD GAS O2 SATURATION 89.5 % (92-100); ARTERIAL BLD GAS TCO2 CT 28.1; ARTERIAL BLOOD GAS BASE EXCESS 2.4 (-2-2); ARTERIAL BLOOD GAS HCO3 26.9 meq/L (22-26); ARTERIAL BLOOD GAS PCO2 41.3 mmHg (35-45); ARTERIAL BLOOD GAS PO2 59.2 mmHg (80-100); ARTERIAL BLOOD GAS pH 7.43 (7.35-7.45)
--- NOTE | 2020-03-29 19:37 | NUR ---
1455: Pt back on 10L NC, eating late lunch, O2 sats checked. Pt in 70s, difficulty getting sats up. Pt A&O. HELEN Menendez notified, no orders given at this time. 1814: This nurse and DIRECTOR GLOBAL INTELLIGENCE in room to assist pt to bedside commode, pt had been on bipap. Bipap removed and placed on 10L NC. Pt appears very tired and drowsy, difficulty keeping eyes open, weak, but is alert and oriented. Pt desats quickly to 70s. STEPHON Chairez notified, orders for stat ABG placed, pt assisted back to bed and placed on bipap, sats increase within a couple of minutes to 90s. O2 59 on ABGs. Pt didnt want to eat dinner. 1929: Report given to YUNIEL Simmons. No further needs at this time.
--- NOTE | 2020-03-29 20:17 | NUR ---
Assessment complete. Patient is currently on BIPAP and satting 97%. BIPAP is briefly removed for PO medication administration and patient is put on 10 liters high flow oxygen; Her sats quickly drop to 49% on the nasal cannula but climb back into the 90's once BIPAP is replaced. Patient complains of back pain 6/10 and scheduled morphine is administered. RUQ percutaneous abscess drain is draining dark brown fluid. Lung sounds are greatly diminished due to morbid obesity. Call light in reach and patient states she is comfortable. Will continue to monitor.
--- NOTE | 2020-03-29 21:55 | NUR ---
Lasix drip 10 mg/hr initiated at this time. Patient educated on medication and cleary catheter placed prior to administration. Dynamap in room and is set to monitor patient's BP Q1 hour.
[2020-03-30] VITALS (23 sets, daily range): BP systolic 83–145; BP diastolic 52–93; PULSE 89–110; TEMP 97.3–99.4
[2020-03-30 05:36] LABS: ARTERIAL BLD GAS O2 SATURATION 90.8 % (92-100); ARTERIAL BLD GAS TCO2 CT 33.1; ARTERIAL BLOOD GAS BASE EXCESS 5.9 (-2-2); ARTERIAL BLOOD GAS HCO3 31.5 meq/L (22-26); ARTERIAL BLOOD GAS PCO2 50.5 mmHg (35-45); ARTERIAL BLOOD GAS PO2 60.4 mmHg (80-100); ARTERIAL BLOOD GAS pH 7.41 (7.35-7.45)
[2020-03-30 06:04] LABS: HEMOGLOBIN 11.5 g/dl (12.5-16.0); MEAN CELL VOLUME 88 fl (80.0-100.0); MEAN CORPUSCULAR HEMOGLOBIN 28 pg (27.0-31.0); MEAN CORPUSCULAR HGB CONC 31 g/dl (33.0-37.0); MEAN PLATELET VOLUME 9.2 fl (7.4-10.4); PLATELET COUNT 350 K/mm3 (130-400); RED BLOOD COUNT 4.18 M/mm3 (4.10-5.30); REDCELL DISTRIBUTION WIDTH-CV 14.6 % (11.5-14.5)
[2020-03-30 06:18] LABS: ALBUMIN 3.2 gm/dL (3.5-5.0); BILIRUBIN,TOTAL 0.7 mg/dL (0.0-1.0); CALCIUM 8.4 mg/dL (8.4-10.2); CREATININE, serum 1.24 (0.52-1.25); POTASSIUM 3.6 mmol/L (3.4-5.0); TOTAL PROTEIN 6.6 gm/dL (6.4-8.2)
[2020-03-30 06:34] LABS: HEMATOCRIT 36.9 % (37.0-47.0)
--- NOTE | 2020-03-30 15:31 | NUR ---
0930: Pt assessment completed and charted. Pt sleeping, on bipap at the time. Pt arouasable to touch and verbal stimuli but falls back to sleep quickly, very drowsy. Pt on Q1H monitoring while on lasix gtt d/t orders. Dobutamine gtt on hold, pt SBP up and down, 100s-120s. Pt received IV meds/abx that were scheduled this morning. Pt refused breakfast and PO meds, pt wanted to take later and sleep at this time. Claudio in place to dd draining clear pale urine. ENMANUEL PICC in place, both ports flush w/o issue and good blood return. 1300: Pt laying in bed, on bipap, satting well. Pt awake, A&O. Requesting to be put on HFNC to eat lunch and take meds that she has or missed. Pt received some morning medications that she missed and scheduled meds at that time. Pt placed on 10 L HFNC. Brothers in to assess pt. Pt ate maybe 10-20% lunch, provided fluids. Pt desatted to about 82% and held steady mid 80s. Pt was off bipap for almost an hr. Pt then continued to desat and hit 70s. Pt placed back on bipap, tolerating well. Pt was a&o entire time. Breathing was slightly labored and tachypneic. Pt has not been placed on dobutamine gtt, still on hold, pressures holding stabled. Pt has had >2000 output of pale yellow urine. 1615: Pt sleeping on bipap. No issues noted. RUQ abcess drain in place, minimal drainage noted throughout day today.
--- NOTE | 2020-03-30 18:12 | NUR ---
Pt laying in bed, awakened when this nurse walked in room, still on bipap, satting well. Pt refused food, no insulin coverage given. Pt did request to have fruit and ice cream left to possibly eat later. Pt requesting to call family, will remove bipap and place on 10L HFNC while she calls them. No further needs at this time.
[2020-03-31] VITALS (10 sets, daily range): BP systolic 100–120; BP diastolic 57–79; PULSE 97–111; TEMP 97.2–98
--- NOTE | 2020-03-31 03:00 | NUR ---
DOBUTAMINE RESTARTED PT'S SYSTOLIC BLOOD PRESSURES WERE DROPPING BELOW 100.
--- NOTE | 2020-03-31 05:25 | NUR ---
DOBUTAMINE STOPPED PT'S HEART RATE KEPT INCREASING AFTER MEDICATION WAS STARTED. HEART RATE INCREASED INTO LOW 130'S.
[2020-03-31 07:16] LABS: BASO % 0.1 % (0.0-2.0); EOS % 0.1 % (0-4.0); GRAN % 84.3 % (42.2-75.2); HEMATOCRIT 39.3 % (37.0-47.0); HEMOGLOBIN 12.5 g/dl (12.5-16.0); LYMPH # 1.1 (1.2-3.4); LYMPH % 11.6 % (20.0-51.0); MEAN CELL VOLUME 87 fl (80.0-100.0); MEAN CORPUSCULAR HEMOGLOBIN 28 pg (27.0-31.0); MEAN CORPUSCULAR HGB CONC 32 g/dl (33.0-37.0); MEAN PLATELET VOLUME 9.7 fl (7.4-10.4); MONO # 0.3 (0.1-0.6); MONO % 2.7 % (1.7-9.3); PLATELET COUNT 389 K/mm3 (130-400); RED BLOOD COUNT 4.54 M/mm3 (4.10-5.30); REDCELL DISTRIBUTION WIDTH-CV 14.2 % (11.5-14.5)
[2020-03-31 07:18] LABS: ALBUMIN 3.3 gm/dL (3.5-5.0); BILIRUBIN,TOTAL 0.7 mg/dL (0.0-1.0); CREATININE, serum 1.47 (0.52-1.25); POTASSIUM 3.9 mmol/L (3.4-5.0); TOTAL PROTEIN 6.9 gm/dL (6.4-8.2)
[2020-03-31 07:30] LABS: C-REACTIVE PROTEIN 26.3 mg/dL (0.0-0.9)
--- NOTE | 2020-03-31 08:58 | NUR ---
PATIENT ON BIPAP, 60%FIO2 DOWN FROM 80% THIS AM.
[2020-03-31 09:46] LABS: ARTERIAL BLD GAS O2 SATURATION 90.3 % (92-100); ARTERIAL BLD GAS TCO2 CT 30.7; ARTERIAL BLOOD GAS BASE EXCESS 4.3 (-2-2); ARTERIAL BLOOD GAS HCO3 29.3 meq/L (22-26); ARTERIAL BLOOD GAS PCO2 45.3 mmHg (35-45); ARTERIAL BLOOD GAS PO2 60.7 mmHg (80-100); ARTERIAL BLOOD GAS pH 7.43 (7.35-7.45)
--- NOTE | 2020-03-31 09:50 | NUR ---
PT SWABBED FOR RAPID COVID DUE TO RAPID DECLINE IN RESPIRATORY EFFORT. INCREASED O2 NEEDS. BIPAP DEPENDENT, DR IS DISCUSSING INTUBATION. WILL CONTINUE TO MONITOR. LIFE PARTNER HAS BEEN CONTACTED, AND IS ARRIVING TO DISCUSS OPTIONS WITH THE PATIENT.
--- NOTE | 2020-03-31 10:38 | NUR ---
The patient's respiratory status has changed. Awaiting an ICU bed. The hospitalist would like for the patient's , Haider, to come and see the patient. The hospitalist has contacted Haider and he is going to be coming up the hospital. A palliative care consult has been ordered. SAROJ was notified that [facility] is requesting updates. SAROJ faxed updates to Jericho at [facility]. SAROJ to continue to follow.
--- NOTE | 2020-03-31 11:48 | NUR ---
Pt's significant other has arrived at the bedside for visit with pt and with With Dr Mendez and oncology social work, Iris along with palliative care nurse. Dr Mendez did advise pt and life partner that her ARDS is worsening and that it is desired that she have an ICU bed and possible access to ventilator if that would be her desire in the very near future. Pt and life partner asked appropriate questions and are aware that an ICU bed--most likely at a hospital who would have such an opening. Our ICU beds are full at this time. We are planning to continue aggressive care at this time. 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 She would require an ET tube size 5 or smaller. She is aware that her situation may slowly improve but may not. At this point she is wanting to pursue aggressive treatment but is aware that if she should change her mind, that she needs to let her treatment team know.
--- NOTE | 2020-03-31 14:33 | NUR ---
The patient's , Haider, arrived to the hospital. SAROJ, the hospitalist, and palliative care nurse, Lisbeth, met with the patient and Haider. The hospitalist updated the patient and Haider on her prognosis and how he would want to move her into and ICU. Our ICU is currently full. The patient is open to be transferred to any hospital that has an ICU bed. The patient would like to continue aggressive treatment. The patient has been accepted at [facility] in [place]. SAROJ contacted and updated Jericho at [facility]. No additional needs at this time.
--- NOTE | 2020-03-31 18:19 | NUR ---
AFTER PT CONTINUED TO DECLINE TODAY, DR. CHINCHILLA GAVE PT THE OPTION OF PALLIATIVE CARE OR ICU TRANSFER. PT CHOSE TO TRANSFER TO ICU. THE PATIENT WAS INTUBATED AT 1603. PT TOLERATED WELL, [facility] WAS INHOUSE DURING INTUBATION, AND TRANSPORTED POST INTUBATION. BETTYE SALGADO, PT'S LIFE PARTNER WAS AT THE HOSPITAL, AND TOOK HOME ALL THE PATIENT'S BELONGINGS. NO FURTHER CARES FROM THIS RN AFTER PT TRANSPORTED. REPORT CALLED TO [facility] IN [place] TO YUNIEL BENNETT IN THE ICU.
== END 2020-03-31 15:00 | disposition short-term general hospital (02) | DRG 862 ==
LOC: COL.ER 05:38 → MEDICAL 06:52
PROVIDERS: Emergency Medicine; Hospitalist; Internal Medicine Pulmonary Disease; Nurse Practitioner Family; Physician Assistant; ADMIT Internal Medicine
PROC: 0BH17EZ Insertion of Endotracheal Airway into Trachea, Via Natural or Artificial Opening (ICD-10-PCS; principal; 2020-03-31)
PROC: 5A1935Z Respiratory Ventilation, Less than 24 Consecutive Hours (ICD-10-PCS; 2020-03-31)
DX: T81.43XA Infection following a procedure, organ and space surgical site, initial encounter (principal); J80 Acute respiratory distress syndrome; I21.A1 Myocardial infarction type 2; J18.9 Pneumonia, unspecified organism; I50.23 Acute on chronic systolic (congestive) heart failure; I13.0 Hypertensive heart and chronic kidney disease with heart failure and stage 1 through stage 4 chronic kidney disease, or unspecified chronic kidney disease; J44.0 Chronic obstructive pulmonary disease with (acute) lower respiratory infection; N17.9 Acute kidney failure, unspecified; K81.0 Acute cholecystitis; B37.0 Candidal stomatitis; Z68.41 Body mass index [BMI] 40.0-44.9, adult; E11.65 Type 2 diabetes mellitus with hyperglycemia; G89.29 Other chronic pain; M54.2 Cervicalgia; E11.42 Type 2 diabetes mellitus with diabetic polyneuropathy; I25.10 Atherosclerotic heart disease of native coronary artery without angina pectoris; I25.5 Ischemic cardiomyopathy; E78.5 Hyperlipidemia, unspecified; F31.9 Bipolar disorder, unspecified; F41.9 Anxiety disorder, unspecified; I27.20 Pulmonary hypertension, unspecified; R19.7 Diarrhea, unspecified; G47.30 Sleep apnea, unspecified; E11.22 Type 2 diabetes mellitus with diabetic chronic kidney disease; N18.30 Chronic kidney disease, stage 3 unspecified; Z20.828 Contact with and (suspected) exposure to other viral communicable diseases; I25.2 Old myocardial infarction; Z95.5 Presence of coronary angioplasty implant and graft; Z87.891 Personal history of nicotine dependence; Z79.4 Long term (current) use of insulin; Z88.1 Allergy status to other antibiotic agents; Z90.49 Acquired absence of other specified parts of digestive tract; Y83.8 Other surgical procedures as the cause of abnormal reaction of the patient, or of later complication, without mention of misadventure at the time of the procedure
CPT/HCPCS: 99232-AI; 99233-AI; C1729; C1751; C1892; G0378; J1250; J1450; J1650; J1815; J1940; J2060; J2250; J2543; J2920; J2930; J3010; J3370; J3480; J7040; J7050; J7512; Q9967